=== PATIENT | male | born 1940 | race Caucasian/White ===

== ENCOUNTER → 2016-08-17 | Day surgery (SDC) | payer BC ==
[2016-08-05 11:17] VITALS: Ht 177.8 cm; Wt 80.9 kg
[~2016-08-17] VITALS: Ht 177.8 cm; Wt 80.9 kg
[~2016-08-17] MED LIST: 500ML BSS 0.3ML EPI 1:1000PF IRRIG ONE; AMVISC PLUS 0.8ML SYRINGE INT OCU ONE; ATOR10TA82 PO; ATROPINE SULFATE 0.1 MG/ML 5ML SYR IV PRN; BRIMONIDINE TART 0.2% OP SOLN PER DROP CHARGE ONE; BSS FLUSH ONE; CHOL2000 PO; COEN100C3 PO; ENDOCOAT 0.85ML SYRINGE INT OCU ONE; EpHEDrine SULFATE INJ 50 MG/ML AMP IV PRN; EpINEphrine INJ 1MG/ML AMP 1 MG/ML AMP ONE; GLC500 PO; LACTATED RINGER'S 1000ML 500 ML IV SCH; LIDOCAINE 4% OP SOLN DROP CHARGE ONE; LIDOCAINE 4% OP SOLN DROP CHARGE OPL SCH; LIDOCAINE HCL 1% MPF 2 ML VIAL ONE; MIDAZOLAM HCL 1 MG/ML 2ML VIAL ONE; MOXIFLOXACIN OPH SOLN PER DROP CHARGE ONE; ONDANSETRON INJ 2 MG/ML 2 ML VIAL IV PRN; POVIDONE-IODINE OP SOLN 30 ML BTL ONE; PRLSR20 PO; PROPARACAINE 0.5% OP SOLN PER DROP CHARGE OPL SCH; RIVA1.5T PO; TOBRAMYCIN/DEXAMETHASONE OPH OINT PER APPLN CHARGE ONE; TPRSR/25 PO
[2016-08-17] MEDS: PHENYLEPHRINE HCL 2.5% OP SOLN PER DROP CHARGE OPL SCH ×2 (07:51→07:56)
[2016-08-17] MEDS: TROPICAMIDE 1% OP SOLN PER DROP CHARGE OPL SCH ×2 (07:52→07:57)
[2016-08-17] MEDS: CYCLOPENTOLATE HCL 1% OP SOLN PER DROP CHARGE OPL SCH ×2 (07:53→07:58)
[2016-08-17] MEDS: KETOROLAC 0.5% OP SOLN PER DROP CHARGE OPL SCH ×2 (07:54→07:59)
[2016-08-17] MEDS: MOXIFLOXACIN OPH SOLN PER DROP CHARGE OPL SCH ×2 (07:55→08:05)
--- NOTE | 2016-08-17 08:14 | History & Physical Bridge - [place] ---
H&P Re-Evaluation Bridge Note: I have examined the patient, reviewed the History & Physical and in the interval since the performance of the History & Physical I have noted the following changes of clinical significance: No changes noted
[2016-08-17 09:24] VITALS: TEMP 36.2
--- NOTE | 2016-08-17 09:24 | Discharge Instructions-SurgCtr ---
Discharge Instructions Date of Service Aug 17, 2016. Visit Reason for Visit: Left Cataract Discharge Discharge Diagnosis / Problem: cataract left eye Discharge Goals Goal(s): Improve function Activity Recommendations Activity Limitations: per Instructions/Follow-up section Lifting Limitations: no more than 5 pounds Anesthesia . Post Anesthesia Instructions: If you have had General Anesthesia or IV Sedation: * Do not drive today. * Resume driving when surgeon permits. * Do not make important decisions or sign legal documents today. * Call surgeon for: 1. Temperature elevations greater than 101 degrees F. 2. Uncontrollable pain. 3. Excessive bleeding. 4. Persistent nausea and vomiting. 5. Medication intolerance (nausea, vomiting or rash). * For nausea and vomiting use only clear liquids such as: tea, soda, bouillon until nausea subsides, then gradually increase diet as tolerated. * If you have any concerns or questions, call your surgeon's office. If physician is unavailable and it is an emergency, call 911 or go to the nearest emergency room. . Instructions / Follow-Up Instructions / Follow-Up ACTIVITY RECOMMENDATIONS: * Light activities * You may walk outside, read, watch television. * Mild irritation and blurred vision are common for the first few days, redness around the white part of the eye is common. MEDICATIONS: Resume previous medications unless instructed otherwise by your surgeon. Eye drops (today and tomorrow): Polytrim- one drop in operative eye every 2 hours while awake Prednisolone 1% - one drop in operative eye every 2 hours while awake Ketorolac - one drop in operative eye every 2 hours while awake SPECIAL CARE INSTRUCTIONS: * If any problems or concerns, please call Dr. Tran's office at . * Keep plastic shield taped over eye to sleep at night. * Keep plastic shield taped over eye except to administer eye drops. * Keep plastic shield on until office visit the following day. FOLLOW UP VISIT: Follow-up with Dr. Tran in the [place] office as scheduled. If not already scheduled, please call the office at . Diet Recommendations Home Diet: resume previous diet Procedures Procedures Performed: Left Cataract Phacoemulsification With Intraocular Lens Implant Pending Studies Studies pending at discharge: no Medical Emergencies . Who to Call and When: Medical Emergencies: If at any time you feel your situation is an emergency, please call 911 immediately. . Non-Emergent Contact Non-Emergency issues call your: Tufting Machine Operator . . "Provider Documentation" section prepared by Oliver Tran. .
--- NOTE | 2016-08-17 09:24 | [facility] Post Operative Brief Note ---
Immediate Operative Summary Operative Date Aug 17, 2016. Pre-Operative Diagnosis Cataract Left Eye Post-Operative Diagnosis Same Procedure(s) Performed Left Cataract Phacoemulsification With Intraocular Lens Implant Surgeon Dr. Tran Patrol Judge Surgeon(s) None Estimated Blood Loss 0 Findings cataract left eye Specimens 0 Complication(s) None Disposition Recovery Room / PACU
--- NOTE | 2016-08-17 09:41 | Anesthesia Progress Nt - [facility] ---
Anesthesia Post Op Note Date & Time Aug 17, 2016 at 09:41 Vital Signs Pain Intensity: 0 Vital Signs Past 12 Hours Date Time Temp Pulse Resp B/P (MAP) Pulse Ox O2 Delivery O2 Flow Rate FiO2 08/17/16 09:24 36.2 59 16 127/79 (95) 97 Room Air 08/17/16 07:32 36.4 57 16 171/88 (115) 95 Room Air Notes Mental Status: alert / awake / arousable, participated in evaluation Pt Amnestic to Procedure: Yes Nausea / Vomiting: adequately controlled Pain: adequately controlled Airway Patency, RR, SpO2: stable & adequate BP & HR: stable & adequate Hydration State: stable & adequate Anesthetic Complications: no major complications apparent
[2016-08-17 09:46] VITALS: BP 139/78; PULSE 53; O2SAT 95
--- NOTE | 2016-08-17 10:48 | OPERATIVE REPORT ---
DATE OF OPERATION: 08/17/2016 PREOPERATIVE DIAGNOSIS: Cataract, left eye. POSTOPERATIVE DIAGNOSIS: Cataract, left eye. PROCEDURE: Phacoemulsification cataract extraction with intraocular lens placement, left eye. SURGEON: Dr. Tran. COMPLICATIONS: None. ESTIMATED BLOOD LOSS: None. ANESTHESIA: Topical with sedation. OPERATION AND FINDINGS: After informed consent was obtained in the holding area the patient was wheeled back to the Operating Room where cardiac monitoring leads and oxygen by nasal cannula was administered by Anesthesia. Gentle IV sedation was given, and the patient's left eye was prepped and draped in usual sterile fashion. A wire lid speculum was placed into the left eye and the operating microscope was swung into position. Using 0.12 forceps and a Supersharp blade a paracentesis port was made 3 o'clock hours away from the 3 o'clock position of patient's left eye. 1% non-preserved Lidocaine was then injected into the anterior chamber for anesthesia. A 2.2 mm keratotome blade was then used to make a shelved clear corneal incision at the 3 o'clock position of his left eye. Amvisc was injected into the anterior chamber and a cystotome and Utrata forceps were used to perform a curvilinear capsulorrhexis. BSS on a hydrodissection cannula was used to hydrodissect the lens nucleus away from the capsular bag. The phacoemulsification handpiece was then used in a stop and chop fashion to remove the lens nucleus. The irrigation and aspiration handpiece was then used to remove the residual cortical material. Amvisc was injected into the capsular bag and anterior chamber and a Bausch & Lomb MX60 20.0 Diopter intraocular lens was injected into the capsular bag. Irrigation and aspiration handpiece was used to remove the residual viscoelastic material. The wounds were hydrated and noted to be watertight. The wire lid speculum was removed from the eye. Vigamox, Brimonidine, and TobraDex ointment were placed on the eye and it was shielded. It should be noted that EndoCoat was used during the case to protect the cornea endothelium. DISPOSITION: The patient tolerated the procedure well and was wheeled to the post anesthesia care unit in stable condition. I attest to the content of the Intraoperative Record and any orders documented therein. Any exceptions are noted below. I attest to the content of the Intraoperative Record and any orders documented therein. Any exception s are noted below.
== END | disposition home or self-care (01) ==
LOC: X.SURG 07:08
PROVIDERS: ATTEND Ophthalmology
DX: H26.9 Unspecified cataract (principal); I48.91 Unspecified atrial fibrillation; I10 Essential (primary) hypertension; E11.9 Type 2 diabetes mellitus without complications; Z85.46 Personal history of malignant neoplasm of prostate; Z87.891 Personal history of nicotine dependence; Z79.01 Long term (current) use of anticoagulants; Z79.84 Long term (current) use of oral hypoglycemic drugs; Z79.899 Other long term (current) drug therapy

== ENCOUNTER → 2016-08-31 | Day surgery (SDC) | payer BC ==
[2016-08-28 10:09] VITALS: Ht 177.8 cm; Wt 80.9 kg
[~2016-08-31] VITALS: Ht 177.8 cm; Wt 80.9 kg
[~2016-08-31] MED LIST changes: -ATOR10TA82 PO; +ATOR10TA88 PO; -EpHEDrine SULFATE INJ 50 MG/ML AMP IV PRN; -LIDOCAINE 4% OP SOLN DROP CHARGE OPL SCH; +LIDOCAINE 4% OP SOLN DROP CHARGE OPR SCH; -ONDANSETRON INJ 2 MG/ML 2 ML VIAL IV PRN; -PROPARACAINE 0.5% OP SOLN PER DROP CHARGE OPL SCH; +PROPARACAINE 0.5% OP SOLN PER DROP CHARGE OPR SCH
[2016-08-31] MEDS: PHENYLEPHRINE HCL 2.5% OP SOLN PER DROP CHARGE OPR SCH ×2 (07:11→07:16)
[2016-08-31] MEDS: TROPICAMIDE 1% OP SOLN PER DROP CHARGE OPR SCH ×2 (07:12→07:17)
[2016-08-31] MEDS: CYCLOPENTOLATE HCL 1% OP SOLN PER DROP CHARGE OPR SCH ×2 (07:13→07:18)
[2016-08-31] MEDS: KETOROLAC 0.5% OP SOLN PER DROP CHARGE OPR SCH ×2 (07:14→07:19)
[2016-08-31] MEDS: MOXIFLOXACIN OPH SOLN PER DROP CHARGE OPR SCH ×2 (07:15→07:25)
--- NOTE | 2016-08-31 08:12 | Discharge Instructions-SurgCtr ---
Discharge Instructions Date of Service Aug 31, 2016. Visit Reason for Visit: Cataract Right Eye Discharge Discharge Diagnosis / Problem: cataract right eye Discharge Goals Goal(s): Improve function Medications Stopped Medications Name(s): Metformin stopped 08/29/16 Activity Recommendations Activity Limitations: per Instructions/Follow-up section Lifting Limitations: no more than 5 pounds Anesthesia . Post Anesthesia Instructions: If you have had General Anesthesia or IV Sedation: * Do not drive today. * Resume driving when surgeon permits. * Do not make important decisions or sign legal documents today. * Call surgeon for: 1. Temperature elevations greater than 101 degrees F. 2. Uncontrollable pain. 3. Excessive bleeding. 4. Persistent nausea and vomiting. 5. Medication intolerance (nausea, vomiting or rash). * For nausea and vomiting use only clear liquids such as: tea, soda, bouillon until nausea subsides, then gradually increase diet as tolerated. * If you have any concerns or questions, call your surgeon's office. If physician is unavailable and it is an emergency, call 911 or go to the nearest emergency room. . Instructions / Follow-Up Instructions / Follow-Up ACTIVITY RECOMMENDATIONS: * Light activities * You may walk outside, read, watch television. * Mild irritation and blurred vision are common for the first few days, redness around the white part of the eye is common. MEDICATIONS: Resume previous medications unless instructed otherwise by your surgeon. Eye drops (today and tomorrow): Polytrim - one drop in operative eye every 2 hours while awake Prednisolone 1% - one drop in operative eye every 2 hours while awake Ketorolac - one drop in operative eye every 2 hours while awake SPECIAL CARE INSTRUCTIONS: * If any problems or concerns, please call Dr. Tran's office at . * Keep plastic shield taped over eye to sleep at night. * Keep plastic shield taped over eye except to administer eye drops. * Keep plastic shield on until office visit the following day. FOLLOW UP VISIT: Follow-up with Dr. Tran in the [place] office as scheduled. If not already scheduled, please call the office at . Diet Recommendations Home Diet: resume previous diet Procedures Procedures Performed: Right Cataract Phacoemulsification With Intraocular Lens Implant Pending Studies Studies pending at discharge: no Medical Emergencies . Who to Call and When: Medical Emergencies: If at any time you feel your situation is an emergency, please call 911 immediately. . Non-Emergent Contact Non-Emergency issues call your: Combining Machine Operator . . "Provider Documentation" section prepared by Oliver Tran. .
--- NOTE | 2016-08-31 08:18 | [facility] Operative Report ---
Operative Report Operative Date Aug 31, 2016. Pre-Operative Diagnosis Cataract Right Eye Post-Operative Diagnosis Same Procedure(s) Performed Right Cataract Phacoemulsification With Intraocular Lens Implant Surgeon Dr. Tran Resident Assistant Cna Surgeon(s) None Estimated Blood Loss 0 Findings cataract right eye Specimens None Complication(s) None Disposition Recovery Room / PACU Implants B&L MX60 20.0 Indications decreased vision right eye Description of Procedure After informed consent was obtained in the holding area the patient was wheeled back to the operating room where cardiac monitoring leads and oxygen by nasal cannula was administered by Anesthesia. Gentle IV sedation was given, and the patient's right eye was prepped and draped in usual sterile fashion. A wire lid speculum was placed into the right eye and the operating microscope was swung into position. Using 0.12 forceps and a Supersharp blade a paracentesis port was made 3 o'clock hours away from the 9 o'clock position of the patient's right eye. 1% non-preserved Lidocaine was then injected into the anterior chamber for anesthesia. A 2.2 mm keratotome blade was then used to make a shelved clear corneal incision at the 9 o'clock position of the right eye. Amvisc was injected into the anterior chamber and a cystotome and Utrata forceps were used to perform a curvilinear capsulorrhexis. BSS on a hydrodissection cannula was used to hydrodissect the lens nucleus away from the capsular bag. The phacoemulsification handpiece was then used in a stop and chop fashion to remove the lens nucleus. The irrigation and aspiration handpiece was then used to remove the residual cortical material. Amvisc was injected into the capsular bag and anterior chamber and a Bausch & Lomb MX60 20.0 Diopter intraocular lens was injected into the capsular bag. Irrigation and aspiration handpiece was used to remove the residual viscoelastic material. The wounds were hydrated and noted to be watertight. The wire lid speculum was removed from the eye. Vigamox, Brimonidine, and TobraDex ointment were placed on the eye and it was shielded. It should be noted that EndoCoat was used extensively during the case to protect the cornea endothelium. DISPOSITION: The patient tolerated the procedure well and was wheeled to the post anesthesia care unit in stable condition. I attest to the content of the Intraoperative Record and any orders documented therein. Any exceptions are noted below.
[2016-08-31 08:35] VITALS: BP 147/77; PULSE 52; O2SAT 95
--- NOTE | 2016-08-31 08:42 | Anesthesia Progress Nt - [facility] ---
Anesthesia Post Op Note Date & Time Aug 31, 2016 at 08:42 Vital Signs Pain Intensity: 0 Vital Signs Past 12 Hours Date Time Temp Pulse Resp B/P (MAP) Pulse Ox O2 Delivery O2 Flow Rate FiO2 08/31/16 08:35 52 18 147/77 (100) 95 Room Air 08/31/16 08:14 36.6 50 16 152/78 (102) 97 Room Air 08/31/16 07:01 36.1 50 16 151/82 (105) 95 Room Air Notes Mental Status: alert / awake / arousable, participated in evaluation Pt Amnestic to Procedure: Yes Nausea / Vomiting: adequately controlled Pain: adequately controlled Airway Patency, RR, SpO2: stable & adequate BP & HR: stable & adequate Hydration State: stable & adequate Anesthetic Complications: no major complications apparent
== END | disposition home or self-care (01) ==
LOC: X.SURG 06:45
PROVIDERS: ATTEND Ophthalmology
DX: H26.9 Unspecified cataract (principal); E11.36 Type 2 diabetes mellitus with diabetic cataract; Z98.42 Cataract extraction status, left eye; I48.91 Unspecified atrial fibrillation; Z79.01 Long term (current) use of anticoagulants; Z88.1 Allergy status to other antibiotic agents; Z98.890 Other specified postprocedural states

== ENCOUNTER → 2016-10-05 | Outpatient (CLI) | payer BC ==
[~2016-10-05] MED LIST changes: -500ML BSS 0.3ML EPI 1:1000PF IRRIG ONE; -AMVISC PLUS 0.8ML SYRINGE INT OCU ONE; -ATROPINE SULFATE 0.1 MG/ML 5ML SYR IV PRN; -BRIMONIDINE TART 0.2% OP SOLN PER DROP CHARGE ONE; -BSS FLUSH ONE; -COEN100C3 PO; -ENDOCOAT 0.85ML SYRINGE INT OCU ONE; -EpINEphrine INJ 1MG/ML AMP 1 MG/ML AMP ONE; -LACTATED RINGER'S 1000ML 500 ML IV SCH; -LIDOCAINE 4% OP SOLN DROP CHARGE ONE; -LIDOCAINE 4% OP SOLN DROP CHARGE OPR SCH; -LIDOCAINE HCL 1% MPF 2 ML VIAL ONE; -MIDAZOLAM HCL 1 MG/ML 2ML VIAL ONE; -MOXIFLOXACIN OPH SOLN PER DROP CHARGE ONE; -POVIDONE-IODINE OP SOLN 30 ML BTL ONE; -PROPARACAINE 0.5% OP SOLN PER DROP CHARGE OPR SCH; -TOBRAMYCIN/DEXAMETHASONE OPH OINT PER APPLN CHARGE ONE
[2016-10-05 13:12] LABS: ALT/SGPT 28 U/L (12-78); BLOOD UREA NITROGEN 20 mg/dl (7-18); BUN/CREATININE RATIO 15.6 (10-20); CALCIUM 9.7 mg/dl (8.5-10.1); CARBON DIOXIDE 27 mmol/L (21-32); CHLORIDE 108 mmol/L (98-107); GLUCOSE 158 mg/dl (70-99); POTASSIUM 4.2 mmol/L (3.5-5.1); SODIUM 141 mmol/L (136-145)
[2016-10-05 13:15] LABS: ALB/GLOB RATIO 1.1 (0.9-2); ALKALINE PHOSPHATASE 66 U/L (45-117); AST/SGOT 15 U/L (15-37); CHOLESTEROL/HDL RATIO 3.8
[2016-10-05 13:33] LABS: ESTIMATED AVERAGE GLUCOSE 151 mg/dl; HA1C FLAG Normal (Normal)
== END | disposition home or self-care (01) ==
LOC: C.LABPVFM 08:09
PROVIDERS: ATTEND Family Medicine
DX: I35.1 Nonrheumatic aortic (valve) insufficiency (principal); E78.00 Pure hypercholesterolemia, unspecified; M10.9 Gout, unspecified; K21.9 Gastro-esophageal reflux disease without esophagitis; E11.9 Type 2 diabetes mellitus without complications

== ENCOUNTER → 2017-01-06 | Outpatient (CLI) | payer BC ==
[~2017-01-06] MED LIST changes: +ATOR10TA82 PO; -ATOR10TA88 PO
== END | disposition home or self-care (01) ==
LOC: C.PATHSPEC 01-05 13:05
PROVIDERS: ATTEND Nurse Practitioner Adult Health
DX: R31.9 Hematuria, unspecified (principal)

== ENCOUNTER → 2017-01-06 | Outpatient (CLI) | payer BC ==
[2017-01-06 13:38] LABS: BLOOD UREA NITROGEN 21 mg/dl (7-18); CREATININE 1.33 mg/dl (0.60-1.40)
== END | disposition home or self-care (01) ==
LOC: C.LABPVFM 09:41
PROVIDERS: ATTEND Nurse Practitioner Adult Health
DX: R31.9 Hematuria, unspecified (principal)

== ENCOUNTER → 2017-01-11 | Outpatient (CLI) | payer BC ==
[~2017-01-11] MED LIST changes: +OPTIRAY 320 IV PRN
--- NOTE | 2017-01-11 12:39 | DIAGNOSTIC IMAGING REPORT ---
ABDOMEN AND PELVIS CT WITH AND WITHOUT IV CONTRAST, UROGRAM PROTOCOL CT DOSE: 701.30 mGy.cm HISTORY: R31.9 Hematuria TECHNIQUE: Multiaxial CT images of the abdomen and pelvis were performed both before and after the use of intravenous contrast to evaluate the urinary system. Maximal intensity projection images were performed at the workstation by the radiologist. A dose lowering technique was utilized adhering to the principles of ALARA. COMPARISON STUDY: Abdomen and pelvis CT 11/25/2015. FINDINGS: There is a 1 cm stone within the lower pole the right kidney which is not significantly changed. No left renal calculi. No ureteral calculi. No hydronephrosis. No suspicious filling defects seen within the bilateral renal collecting systems, ureters, or bladder. The lung bases are clear. The liver, spleen, gallbladder, pancreas, kidneys, and adrenal glands are within normal limits. No bowel wall thickening or obstruction. Prior prostatectomy. Normal appendix. No suspicious lytic or blastic osseous lesions. IMPRESSION: 1. A 1 cm stone within the lower pole of the right kidney, unchanged. No left renal or ureteral calculi.. No hydronephrosis. 2. No suspicious filling defects seen within the opacified bilateral renal collecting systems, ureters, or bladder. Electronically signed by: Jamie George M.D. 01/11/2017 12:38 PM Dictated Date/Time: 01/11/2017 12:29 PM
== END | disposition home or self-care (01) ==
LOC: C.CTS 11:59
PROVIDERS: ATTEND Nurse Practitioner Adult Health
DX: R31.9 Hematuria, unspecified (principal); N20.0 Calculus of kidney

== ENCOUNTER → 2017-01-13 | Outpatient (CLI) | payer BC ==
[~2017-01-13] MED LIST changes: -OPTIRAY 320 IV PRN
[2017-01-13 13:19] LABS: BLOOD UREA NITROGEN 20 mg/dl (7-18); BUN/CREATININE RATIO 17.4 (10-20); CREATININE 1.14 mg/dl (0.60-1.40)
== END | disposition home or self-care (01) ==
LOC: C.LABPVFM 08:13
PROVIDERS: ATTEND Nurse Practitioner Adult Health
DX: R31.9 Hematuria, unspecified (principal)

== ENCOUNTER → 2017-02-05 | Outpatient (CLI) | payer BC ==
--- NOTE | 2017-02-05 09:50 | DIAGNOSTIC IMAGING REPORT ---
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 No routine imaging evidence for urinary tract calcification. Stable postoperative changes low pelvis. IMPRESSION: No evidence for nephrocalcinosis. No change from the prior study. The above report was generated using voice recognition software. It may contain grammatical, syntax or spelling errors. Electronically signed by: Kamaljit Shahid M.D. 02/05/2017 9:48 AM Dictated Date/Time: 02/05/2017 9:45 AM
== END | disposition home or self-care (01) ==
LOC: C.RAD 09:03
PROVIDERS: ATTEND Nurse Practitioner Adult Health
DX: N20.0 Calculus of kidney (principal)

== ENCOUNTER → 2017-04-06 | Outpatient (CLI) | payer BC ==
[2017-04-06 13:19] LABS: ALT/SGPT 24 U/L (12-78); AST/SGOT 11 U/L (15-37); BLOOD UREA NITROGEN 16 mg/dl (7-18); CALCIUM 9.6 mg/dl (8.5-10.1); CARBON DIOXIDE 29 mmol/L (21-32); CREATININE 1.12 mg/dl (0.60-1.40); GLUCOSE 151 mg/dl (70-99); POTASSIUM 4.2 mmol/L (3.5-5.1); SODIUM 138 mmol/L (136-145)
[2017-04-06 13:28] LABS: ALKALINE PHOSPHATASE 65 U/L (45-117); CHOLESTEROL 142 mg/dl (0-200); LDL CHOLESTEROL CALCULATED 63 mg/dl; TOTAL PROTEIN 7.9 gm/dl (6.4-8.2)
[2017-04-06 13:38] LABS: HEMOGLOBIN A1C 6.6 % (4.5-5.6)
== END | disposition home or self-care (01) ==
LOC: C.LABPVFM 08:49
PROVIDERS: ATTEND Family Medicine
DX: Z00.00 Encounter for general adult medical examination without abnormal findings (principal); E78.00 Pure hypercholesterolemia, unspecified; I48.0 Paroxysmal atrial fibrillation; K21.9 Gastro-esophageal reflux disease without esophagitis; E11.65 Type 2 diabetes mellitus with hyperglycemia

== ENCOUNTER → 2017-04-06 | Outpatient (CLI) | payer BC ==
--- NOTE | 2017-04-06 16:03 | DIAGNOSTIC IMAGING REPORT ---
L WRIST MIN 3 VIEWS ROUTINE HISTORY: 76 years-old Male HAND PAIN acute ulnar-sided left hand and wrist pain without reported trauma COMPARISON: None available TECHNIQUE: 4 views of the left wrist FINDINGS: Bones are mildly demineralized. Moderate to severe first carpometacarpal osteoarthritis with mild radiocarpal and triscaphe degenerative changes. Subcortical cystic changes are noted involving the proximal triquetrum. Mild degenerative spurring of the distal radioulnar joint. Mild degenerative changes are also seen within the imaged metacarpal phalangeal joints. No acute fracture or subluxation identified. No opaque foreign body or significant soft tissue swelling. IMPRESSION: 1. No acute fracture or dislocation. 2. Degenerative changes as above. 3. Mildly demineralized appearance of the bones. The above report was generated using voice recognition software. It may contain grammatical, syntax or spelling errors. Electronically signed by: Isaac Beckford M.D. 04/06/2017 4:02 PM Dictated Date/Time: 04/06/2017 4:00 PM
== END | disposition home or self-care (01) ==
LOC: C.LABPVFM 15:44
PROVIDERS: ATTEND Family Medicine
DX: M79.642 Pain in left hand (principal); M89.8X4 Other specified disorders of bone, hand

== ENCOUNTER → 2017-09-20 | Outpatient (CLI) | payer BC ==
--- NOTE | 2017-09-20 12:47 | DIAGNOSTIC IMAGING REPORT ---
[facility] CLINICAL HISTORY: N20.1 Calculi, [id number] COMPARISON STUDY: 07/27/2017 FINDINGS: There is no pathologic bowel dilatation. There are multiple surgical clips within the pelvis likely secondary to a prior lymph node dissection. No urinary tract calculi are visualized on conventional radiographic imaging. There is a mild levoscoliosis. Degenerative changes are present within the spine. IMPRESSION: 1. No urinary tract calculi are visualized on conventional radiographic imaging 2. No evidence of pathologic bowel dilatation. Electronically signed by: Nato Galloway M.D. 09/20/2017 12:45 PM Dictated Date/Time: 09/20/2017 12:45 PM
== END | disposition home or self-care (01) ==
LOC: C.RAD 12:06
PROVIDERS: ATTEND Nurse Practitioner Family
DX: N20.1 Calculus of ureter (principal)

== ENCOUNTER → 2017-10-05 | Outpatient (CLI) | payer BC | END | disposition home or self-care (01) | LOC: C.LABSPEC 16:58 | PROVIDERS: ATTEND Nurse Practitioner Family | DX: N39.0 Urinary tract infection, site not specified (principal) ==

== ENCOUNTER → 2017-10-11 | Outpatient (CLI) | payer BC ==
[2017-10-11 13:40] LABS: ALKALINE PHOSPHATASE 59 U/L (45-117); ALT/SGPT 22 U/L (12-78); AST/SGOT 14 U/L (15-37); BLOOD UREA NITROGEN 17 mg/dl (7-18); CALCIUM 9.6 mg/dl (8.5-10.1); CARBON DIOXIDE 28 mmol/L (21-32); CREATININE 1.11 mg/dl (0.60-1.40); GLUCOSE 145 mg/dl (70-99); POTASSIUM 4.3 mmol/L (3.5-5.1); SODIUM 140 mmol/L (136-145); TOTAL PROTEIN 7.7 gm/dl (6.4-8.2)
== END | disposition home or self-care (01) ==
LOC: C.LABPVFM 08:24
PROVIDERS: ATTEND Family Medicine
DX: E78.00 Pure hypercholesterolemia, unspecified (principal); E11.65 Type 2 diabetes mellitus with hyperglycemia

== ENCOUNTER 2018-05-31 15:16 | Observation (INO) ==
[2018-05-31 16:14] LABS: Basophils # (auto) 0.02 K/uL (0-0.2); Basophils % (auto) 0.3 %; Eosinophils # (auto) 0.12 K/uL (0-0.5); Eosinophils % (auto) 1.8 %; Hematocrit (blood only) 43.5 % (42-52); Immature Granulocytes # (auto) 0.01 K/uL (0.00-0.02); Immature Granulocytes % (auto) 0.1 %; Lymphocytes # (auto) 1.61 K/uL (1.2-3.4); Lymphocytes % (auto) 24.1 %; Mean Corpuscular Hgb Conc 34.5 g/dL (32-36); Mean Corpuscular Volume 90.8 fL (80-100); Monocytes # (auto) 0.44 K/uL (0.11-0.59); Monocytes % (auto) 6.6 %; Neutrophils # (auto) 4.47 K/uL (1.4-6.5); Neutrophils % (auto) 67.1 %; Platelet Count 206 K/uL (130-400); RDW Coefficient of Variation 12.7 % (11.5-14.5); RDW Standard Deviation 41.8 fL (36.4-46.3); Red Blood Count 4.79 M/uL (4.7-6.1); White Blood Count 6.67 K/uL (4.8-10.8)
--- NOTE | 2018-05-31 16:23 | Emergency Department Note ---
Entered by Denisa Dean acting as a scribe for Ziggy Otoole DO History of Present Illness General Chief complaint: Shortness of Breath/Dyspnea Stated complaint: CHEST TIGHTNESS AND SHORTNESS OF BREATH Time Seen by Provider: 05/31/18 15:47 Source: patient Limitations: no limitations History of Present Illness Provider complaint: shortness of breath Onset (ago): day(s) 1 Location: chest Exacerbated By: + movement Associated symptoms: + denies other symptoms (diarrhea ) and + other (+chest tightness); no nausea/vomiting The patient is a 77 year old C7 who presents to the Emergency Room with complaints of shortness of breath that began 1 day prior to arrival. The patient states that walking exacerbates his shortness of breath and states that it also causes chest tightness. The patient denies any nausea, vomiting, or diarrhea. The patient states that the night prior to arrival he thinks he had atrial fibrillation. The patient states that he is scheduled for a stress test on Wednesday. The patient states that he has a history of indigestion and states that he takes Zantac. Home Medications Home Medications Medication Instructions Recorded Confirmed Type atorvastatin 10 mg PO DAILY 05/31/18 05/31/18 History cholecalciferol (vitamin D3) 2,000 units PO DAILY 05/31/18 05/31/18 History metformin 500 mg PO BID 05/31/18 05/31/18 History metoprolol succinate 25 mg PO BID 05/31/18 05/31/18 History omeprazole 20 mg PO QAM 05/31/18 05/31/18 History ranitidine HCl 150 mg PO BID 05/31/18 05/31/18 History rivaroxaban [Xarelto] 15 mg PO DAILY 05/31/18 05/31/18 History Allergies Allergy/AdvReac Type Severity Reaction Status Date / Time meprobamate Allergy Intermediate ITCHING Verified 08/31/16 06:58 propoxyphene Allergy Intermediate ITCHING Verified 08/31/16 06:58 salicylates Allergy Intermediate ITCHING; Verified 08/31/16 06:58 PT TAKES ASA AT HOME acetaminophen Allergy Mild Unknown Verified 08/31/16 06:58 codeine Allergy Unknown unknown Verified 08/31/16 06:58 erythromycin base Allergy Unknown Verified 08/31/16 06:58 Xanthine Derivatives Allergy Unknown Unknown Uncoded 04/04/16 12:15 reaction Past Med/Surg History Medical History Atrial fibrillation No significant family history No significant past surgical history Pyelonephritis Social History Feels Safe at Home: Yes Smoking Status: Former smoker Review of Systems See HPI for pertinent positives & negatives. and A total of 10 systems reviewed and were otherwise negative See HPI for pertinent positives & negatives. A total of 10 systems reviewed and were otherwise negative. Physical Exam Vital Signs Vital Signs - 24 hr 05/31/18 15:19 05/31/18 15:50 05/31/18 16:16 Temperature 36.6 C Temperature Source Oral Sepsis Recent Fever Within 48 Hours No Sepsis New/Unexplained Change in Mental Status No Sepsis Action Taken by Nursing No Action Required Pulse Rate 65 62 Pulse Rate [Apical] 66 Pulse Rhythm [Apical] Regular Pulse Strength [Apical] Normal Respiratory Rate 18 12 Respiratory Effort / Characteristics Non-Labored Non-Labored Spontaneous Respiratory Depth Normal Normal Respiratory Pattern Regular Blood Pressure 119/70 165/88 H Blood Pressure [Right Arm] 165/88 H Blood Pressure Mean 86 113 Blood Pressure Mean [Right Arm] 113 Blood Pressure Position [Right Arm] Sitting Pulse Oximetry 97 98 Oxygen Delivery Method Room Air Room Air Room Air Oxygen Flow Rate 98 05/31/18 16:21 05/31/18 16:30 05/31/18 17:00 Temperature Temperature Source Sepsis Recent Fever Within 48 Hours Sepsis New/Unexplained Change in Mental Status Sepsis Action Taken by Nursing Pulse Rate 67 64 51 L Pulse Rate [Apical] Pulse Rhythm [Apical] Pulse Strength [Apical] Respiratory Rate 27 H 16 17 Respiratory Effort / Characteristics Respiratory Depth Respiratory Pattern Blood Pressure Blood Pressure [Right Arm] Blood Pressure Mean Blood Pressure Mean [Right Arm] Blood Pressure Position [Right Arm] Pulse Oximetry Oxygen Delivery Method Oxygen Flow Rate 05/31/18 17:11 Temperature Temperature Source Sepsis Recent Fever Within 48 Hours Sepsis New/Unexplained Change in Mental Status Sepsis Action Taken by Nursing Pulse Rate Pulse Rate [Apical] 62 Pulse Rhythm [Apical] Pulse Strength [Apical] Respiratory Rate 19 Respiratory Effort / Characteristics Respiratory Depth Respiratory Pattern Blood Pressure Blood Pressure [Right Arm] 127/67 Blood Pressure Mean Blood Pressure Mean [Right Arm] 87 Blood Pressure Position [Right Arm] Pulse Oximetry 98 Oxygen Delivery Method Room Air Oxygen Flow Rate CONSTITUTIONAL/VITAL SIGNS: Reviewed / noted above. GENERAL: Non-toxic in appearance. INTEGUMENTARY: Warm, dry, and [place]. HEAD: Normocephalic. EYES: without scleral icterus or trauma. ENT/OROPHARYNX: clear and moist. LYMPHADENOPATHY/NECK: Is supple without lymphadenopathy or meningismus. RESPIRATORY: Lungs clear and equal. CARDIOVASCULAR: Regular rate and rhythm. GI/ABDOMEN: Soft and nontender. No organomegaly or pulsatile mass. No rebound or guarding. Normal bowel sounds. EXTREMITIES: Warm and well perfused. BACK: No CVA tenderness. NEUROLOGICAL: Intact without focal deficits. PSYCHIATRIC: normal affect. MUSCULOSKELETAL: Normally developed with good muscle tone. Course 154: Past medical records reviewed. The patient was evaluated in room C7, and a complete history and physical examination were performed. 1745:I discussed the patient's case with [facility] Hospitalist who will evaluate the patient for further hospitalization. Consultations Consultation #1: [facility] Hospitalist Time: 17:46 Medical Decision Making Differential Diagnosis Etiologies such as cardiac ischemia, aortic dissection, pulmonary embolism, pneumonia, pneumothorax, musculoskeletal, infections, pericarditis, myocarditis, esophageal rupture, gastrointestinal, as well as others were entertained. Medical Records Attestation: I reviewed the patient's medical records. Home Medications Current Medication List: was personally reviewed by me Laboratory Data Attestation: I reviewed the patient's lab results. Result diagrams: 05/31/18 15:46 05/31/18 15:46 Lab Results 05/31/18 05/31/18 05/31/18 Range/Units 15:46 15:46 15:46 WBC 6.67 (4.8-10.8) K/uL RBC 4.79 (4.7-6.1) M/uL Hgb 15.0 (14.0-18.0) g/dL Hct 43.5 (42-52) % MCV 90.8 (80-100) fL MCH 31.3 (25-34) pg MCHC 34.5 (32-36) g/dL RDW Std Deviation 41.8 (36.4-46.3) fL RDW Coeff of Dinora 12.7 (11.5-14.5) % Plt Count 206 (130-400) K/uL MPV 10.0 (7.4-10.4) fL Immature Gran % (Auto) 0.1 % Neut % (Auto) 67.1 % Lymph % (Auto) 24.1 % [place] % (Auto) 6.6 % Eos % (Auto) 1.8 % Baso % (Auto) 0.3 % Immature Gran # (Auto) 0.01 (0.00-0.02) K/uL Neut # (Auto) 4.47 (1.4-6.5) K/uL Lymph # (Auto) 1.61 (1.2-3.4) K/uL [place] # (Auto) 0.44 (0.11-0.59) K/uL Eos # (Auto) 0.12 (0-0.5) K/uL Baso # (Auto) 0.02 (0-0.2) K/uL PT 12.4 H (9.0-12.0) Seconds INR 1.2 H (0.9-1.1) APTT 31.0 (21.0-31.0) Seconds PTT Ratio 1.1 Sodium 142 (136-145) mmol/L Potassium 4.1 (3.5-5.1) mmol/L Chloride 108 H (98-107) mmol/L Carbon Dioxide 27 (21-32) mmol/L Anion Gap 7.0 (3-11) BUN 20 H (7-18) mg/dl Creatinine 1.16 (0.6-1.4) mg/dl Est Cr Clr Drug Dosing 55.9 ml/min Est GFR ( Amer) 70.5 Est GFR (Non-Af Amer) 60.8 BUN/Creatinine Ratio 17.3 (10-20) Glucose 141 H (70-99) mg/dl Calcium 9.6 (8.5-10.1) mg/dl Total Bilirubin 0.8 (0.2-1) mg/dl AST 12 L (15-37) U/L ALT 24 (12-78) U/L Alkaline Phosphatase 66 (45-117) U/L Troponin I 0.050 H* (0-0.045) ng/ml Total Protein 7.6 (6.4-8.2) gm/dl Albumin 3.9 (3.4-5.0) gm/dl Globulin 3.7 (2.5-4.0) gm/dl Albumin/Globulin Ratio 1.1 (0.9-2) Lipase 298 (73-393) U/L Imaging Data Radiologist's Impression: Radiology results as stated below per my review and the radiologist's interpretation: XR chest 1V portable HISTORY: Chest tightness. COMPARISON: Chest 06/03/2015. FINDINGS: The lungs are clear. Cardiac silhouette is normal in size. No pleural effusions. No pneumothorax. IMPRESSION: No acute process. Electronically signed by: Jamie George M.D. 05/31/2018 4:37 PM ECG Data Attestation: I personally reviewed and interpreted this ECG as follows: Indication: SOB/dyspnea Rate (beats per minute): 61 Rhythm: sinus rhythm Findings: + 1st degree AV block; no ST elevation and no ectopy Blood Pressure Blood Pressure Findings: Normal blood pressure MDM Narrative This is a 77-year-old male who presents to the ED with a chief complaint of tightness in his chest for the past few weeks. His symptoms are notable with exertion. He also started having some dyspnea with exertion. This started yesterday. The patient states that he was burping a lot last night around midnight. He was seen by his cardiology service late last week. They have him set up for stress test on Wednesday. Last night he also felt like his pulse was irregular. His vital signs today are normal. His physical exam was normal. He is currently not having any symptoms. His CBC was normal. Chest x-ray was negative for acute disease. EKG shows a sinus rhythm at a rate of 60 with a first-degree AV block. Complete metabolic panel was unremarkable. Troponin was slightly elevated 0.050. The patient is chronically on Xarelto for A. fib. He was told the results of the test. I spoke with the hospitalist, who will see the patient for further inpatient evaluation and care. Impression & Plan Angina pectoris, unstable Discharge Plan Visit Data Chief Complaint: Shortness of Breath/Dyspnea Stated Complaint: CHEST TIGHTNESS AND SHORTNESS OF BREATH ED Provider: Ziggy Otoole Discharge Problem: Angina pectoris, unstable Patient Disposition: Being Evaluated by Hospitalist Forms Stand Alone Forms: [facility] [employer] Prescriptions Prescriptions: No Action Xarelto 15 mg tablet 15 mg PO DAILY RF: 0 omeprazole 20 mg capsule,delayed release(DR/EC) 20 mg PO QAM RF: 0 ranitidine HCl 150 mg tablet 150 mg PO BID RF: 0 metoprolol succinate 25 mg tablet extended release 24 hr 25 mg PO BID RF: 0 cholecalciferol (vitamin D3) 2,000 unit Tablet 2,000 units PO DAILY RF: 0 metformin 500 mg tablet 500 mg PO BID RF: 0 atorvastatin 10 mg tablet 10 mg PO DAILY RF: 0 Referrals Referrals: Ghanshyam Shaw MD [Primary Care Provider] - The scribe's documentation has been prepared under my direction and personally reviewed by me in its entirety. I confirm that the note above accurately reflects all work, treatment, procedures, and medical decision making performed by me.
[2018-05-31 16:27] LABS: INR 1.2 (0.9-1.1); Partial Thromboplastin Ratio 1.1; Prothrombin Time 12.4 Seconds (9.0-12.0)
--- NOTE | 2018-05-31 16:38 | XRay Report ---
XR chest 1V portable HISTORY: Chest tightness. COMPARISON: Chest 06/03/2015. FINDINGS: The lungs are clear. Cardiac silhouette is normal in size. No pleural effusions. No pneumot horax. IMPRESSION: No acute process. Electronically signed by: Jamie George M.D. 05/31/2018 4:37 PM
[2018-05-31 16:54] LABS: Albumin Globulin Ratio 1.1 (0.9-2); Albumin Level 3.9 gm/dl (3.4-5.0); BUN Creatinine Ratio 17.3 (10-20); Bilirubin,Total 0.8 mg/dl (0.2-1); Calcium 9.6 mg/dl (8.5-10.1); Creatinine Clr Calc Pharmacy 55.9 ml/min; Est GFR (African American) 70.5; Est GFR (Non-African American) 60.8; Globulin 3.7 gm/dl (2.5-4.0); Total Protein 7.6 gm/dl (6.4-8.2)
[2018-05-31 17:00] LABS: Potassium 4.1 mmol/L (3.5-5.1)
[2018-05-31 17:38] LABS: Troponin I 0.05 ng/ml (0-0.045)
--- NOTE | 2018-05-31 18:38 | History & Physical Report ---
Date of Service May 31, 2018 Assessment & Plan (1) Chest pain: Some typical and some atypical symptoms. Planned to get outpatient stress on Wednesday, but cardiology office recommended coming in due to his episode of sustained pain last night. Initial troponin was 0.05 in the ED. EKG was stable and non-ischemic. - Trend troponins and EKGs - Discussed with Dr. Whitlock - Plan for dobutamine stress echo in the morning if negative troponins - Telemetry (2) Atrial fibrillation: Paroxysmal. - Continue Xarelto for anticoagulation - Continue Toprol XL (3) Diabetes mellitus: Last A1c was 7.0% in 04/2018. - Hold metformin in case of need for cath. - Sliding scale insulin (4) Hyperlipidemia: - Continue statin (5) DVT prophylaxis: Xarelto for his afib History of Present Illness Primary Care Provider: Ghanshyam Shaw MD 77yo M w/ history of DM, HLD who presents with unstable chest pain. He reports that for several weeks, he has had chest pain that he describes as a burning epigastric sensation which is crushing. He reports the pain is usually worse with eating and improves with his home GERD medications. However the last couple weeks he has also noted shortness of breath with the symptoms. He notes the symptoms have been worse in the last few days when walking to or from his tool shed. He planned for an outpatient stress test on Wednesday; however, overnight he had a significant episode of his chest pressure that lasted from 11 PM to midnight. There is again associated with shortness of breath and resolved when he took his home omeprazole. At present he is chest pain-free. He denies fever, chills, sweats, nausea, vomiting, shortness of breath, lightheadedness, dizziness, or other symptoms. Allergies Allergy/AdvReac Type Severity Reaction Status Date / Time meprobamate Allergy Intermediate ITCHING Verified 08/31/16 06:58 propoxyphene Allergy Intermediate ITCHING Verified 08/31/16 06:58 salicylates Allergy Intermediate ITCHING; Verified 08/31/16 06:58 PT TAKES ASA AT HOME acetaminophen Allergy Mild Unknown Verified 08/31/16 06:58 codeine Allergy Unknown unknown Verified 08/31/16 06:58 erythromycin base Allergy Unknown Verified 08/31/16 06:58 Xanthine Derivatives Allergy Unknown Unknown Uncoded 06/03/15 12:15 reaction Home Medications Home Medications Medication Instructions Recorded Confirmed Type atorvastatin 10 mg PO DAILY 05/31/18 05/31/18 History cholecalciferol (vitamin D3) 2,000 units PO DAILY 05/31/18 05/31/18 History metformin 500 mg PO BID 05/31/18 05/31/18 History metoprolol succinate 25 mg PO BID 05/31/18 05/31/18 History omeprazole 20 mg PO QAM 05/31/18 05/31/18 History ranitidine HCl 150 mg PO BID 05/31/18 05/31/18 History rivaroxaban [Xarelto] 15 mg PO DAILY 05/31/18 05/31/18 History Past Med/Surg History Medical History No significant family history (Inactive) No significant past surgical history (Inactive) Atrial fibrillation Diabetes mellitus Hyperlipidemia Prostate cancer Pyelonephritis Surgical History S/P prostatectomy Family History Father Stroke Mother Stroke Social History Feels Safe at Home: Yes Smoking Status: Former smoker Review of Systems Constitutional: no fever, no chills and no sweats Eyes: no diplopia Ear, Nose, Mouth, Throat: no ear trauma, no nasal discharge and no dental pain Respiratory: no cough, no chest congestion and no dyspnea Cardiovascular: + chest pain and + dyspnea on exertion; no radiating jaw, neck or arm pain, no palpitations and no syncope Gastrointestinal: no abdominal pain, no belching, no constipation, no diarrhea/loose stools, no blood in stools and no melena Musculoskeletal: no back pain, no joint pain and no muscle weakness Integumentary: no rash, no skin ulcer and no erythema Neurologic: no generalized weakness, no loss of sensation, no numbness and no paresthesia Psychiatric: no depression and no anxiety Endocrine: no fatigue, no polydipsia and no polyphagia Physical Exam Vital Signs (Past 24 Hours): Last Vital Signs Temp 36.6 C 05/31/18 15:19 Pulse 62 05/31/18 17:11 Resp 19 05/31/18 17:11 BP 127/67 05/31/18 17:11 Pulse Ox 98 05/31/18 17:11 Constitutional: WD/WN, vitals as above Eyes: EOM intact bilaterally; no conjunctival abnormality ENMT: external ear and nose normal, oropharynx normal Neck: trachea midline, no thyromegaly normal visual inspection Respiratory: normal respiratory effort, lungs clear to auscultation no respiratory distress Cardiovascular: RRR, no murmur, no edema Gastrointestinal (Abdomen): Inspection/Auscultation: abdomen normal to inspection; abdomen not distended Musculoskeletal: no cyanosis or clubbing, extremities motor strength 5/5 Skin: no rashes, warm and dry Neurologic: moves all extremities and awake Psychiatric: Orientation: alert, oriented to person and cooperative
[2018-05-31] MEDS ORDERED: ALUMINUM/MAGNESIUM SUSP 30 ML UDC PO PRN (19:26)
[2018-05-31] MEDS ORDERED: CARBOHYDRATES FOR HYPOGLYCEMIA PO PRN (19:26)
[2018-05-31] MEDS ORDERED: GLUCOSE 40% GEL 15 GM TUBE PO PRN (19:26)
[2018-05-31] MEDS ORDERED: DEXTROSE 50% 50 ML SYRINGE IV PRN (19:26)
[2018-05-31] MEDS ORDERED: GLUCOSE 10 TABS/TUBE PO PRN (19:26)
[2018-05-31] MEDS ORDERED: GLUCAGON FOR INJ 1 MG VIAL SQ PRN (19:26)
[2018-05-31] MEDS: INSULIN ASPART 100 UNITS/ML 3 ML PEN SC SCH (20:50)
[2018-05-31] MEDS: METOPROLOL SUCC 25MG EXT REL TAB PO SCH (20:52)
[2018-06-01 06:02] LABS: Hematocrit (blood only) 41.3 % (42-52); Mean Corpuscular Hgb Conc 33.9 g/dL (32-36); Mean Corpuscular Volume 91.4 fL (80-100); Mean Platelet Volume 10.2 fL (7.4-10.4); Platelet Count 188 K/uL (130-400); RDW Coefficient of Variation 12.9 % (11.5-14.5); RDW Standard Deviation 42.9 fL (36.4-46.3); Red Blood Count 4.52 M/uL (4.7-6.1); White Blood Count 5.73 K/uL (4.8-10.8)
[2018-06-01 06:19] LABS: BUN Creatinine Ratio 18.7 (10-20); Calcium 9.3 mg/dl (8.5-10.1); Creatinine Clr Calc Pharmacy 60.1 ml/min; Est GFR (African American) 76.9; Est GFR (Non-African American) 66.3; Magnesium 2.1 mg/dl (1.8-2.4); Potassium 4.3 mmol/L (3.5-5.1)
[2018-06-01 06:24] LABS: Troponin I 0.041 ng/ml (0-0.045)
[2018-06-01] MEDS: METOPROLOL SUCC 25MG EXT REL TAB PO SCH (08:10)
[2018-06-01] MEDS: INSULIN ASPART 100 UNITS/ML 3 ML PEN SC SCH (08:48)
[2018-06-01] MEDS ORDERED: PANTOprazole 40 MG TAB PO SCH (09:00)
[2018-06-01] MEDS ORDERED: RIVAROXABAN 15 MG TAB PO SCH (09:00)
[2018-06-01] MEDS ORDERED: ATORVASTATIN 10 MG TAB PO SCH (09:00)
[2018-06-01] MEDS ORDERED: ATROPINE SULFATE 0.1 MG/ML 10ML SYR IV ONE (11:03)
[2018-06-01] MEDS ORDERED: DOBUTamine HCL 12.5 MG/ML 20 ML VIAL IV ONE (11:03)
[2018-06-01] MEDS ORDERED: METOPROLOL TARTRATE 1 MG/ML VIAL IV ONE (11:04)
--- NOTE | 2018-06-01 15:27 | Discharge Summary ---
Date of Service June 01, 2018 Admission HPI Per Admitting Provider 77yo M w/ history of DM, HLD who presents with unstable chest pain. He reports that for several weeks, he has had chest pain that he describes as a burning epigastric sensation which is crushing. He reports the pain is usually worse with eating and improves with his home GERD medications. However the last couple weeks he has also noted shortness of breath with the symptoms. He notes the symptoms have been worse in the last few days when walking to or from his tool shed. He planned for an outpatient stress test on Wednesday; however, overnight he had a significant episode of his chest pressure that lasted from 11 PM to midnight. There is again associated with shortness of breath and resolved when he took his home omeprazole. At present he is chest pain-free. He denies fever, chills, sweats, nausea, vomiting, shortness of breath, lightheadedness, dizziness, or other symptoms. Principal Diagnosis non cardiac chest pain Discharge Exam Constitutional well developed and average body habitus Eyes no conjunctival abnormality and no scleral abnormality Neck normal visual inspection and trachea midline Musculoskeletal no cyanosis or clubbing, extremities motor strength 5/5 Discharge Data Allergies Allergy/AdvReac Type Severity Reaction Status Date / Time meprobamate Allergy Intermediate ITCHING Verified 08/31/16 06:58 propoxyphene Allergy Intermediate ITCHING Verified 08/31/16 06:58 salicylates Allergy Intermediate ITCHING; Verified 08/31/16 06:58 PT TAKES ASA AT HOME acetaminophen Allergy Mild Unknown Verified 08/31/16 06:58 codeine Allergy Unknown unknown Verified 08/31/16 06:58 erythromycin base Allergy Unknown Verified 08/31/16 06:58 Xanthine Derivatives Allergy Unknown Unknown Uncoded 06/03/15 12:15 reaction Hospital Course (1) Chest pain: Some typical and some atypical symptoms. Planned to get outpatient stress on Wednesday, but cardiology office recommended coming in due to his episode of sustained pain last night. Initial troponin was 0.05 in the ED. EKG was stable and non-ischemic. - neg troponins and EKG for changes - Dr. Whitlock - Negative dobutamine stress echo Had a prolonged discussion with the patient and his family regarding his atypical symptoms is negative stress test. His symptoms were postprandial we talked a little bit about reflux disease he is on a proton pump inhibitor and H2 lorenza and I recommend he follow-up with Dr. Holloway for possible EGD. Also denotes the discomfort and bloating occur after eating and because he does have risk factors for coronary disease although having a negative stress test he could also have intestinal angina and may benefit from a CT angiogram. I offered the patient stay in our facility to have a GI consult and possible CT angiogram however the patient wanted to go home and talk with his physician at [facility] office. I used my nurse navigator to arrange for an office appointment at the most timely fashion and encouraged the patient to continue his dual antiacid therapy until he sees his doctor (2) Atrial fibrillation: Paroxysmal. - Continue Xarelto for anticoagulation and Toprol XL for rate control (3) Diabetes mellitus: Last A1c was 7.0% in 04/2018. Resume metformin the patient denies any intravenous contrast dye (4) Hyperlipidemia: - Continue statin (5) DVT prophylaxis: Xarelto for his afib Total Time Total Time Spent Total Time Spent (In Minutes): greater than 30 minutes were required to prepare discharge Discharge Plan Discharge Items Patient Disposition: Home - Self-Care Reason For Visit: CHEST PAIN Discharge Diagnosis: chest pain with normal stress test Discharge Goals: Decrease discomfort Activity: Resume your previous activity Non-emergency contact: Primary Care Provider and Quantitative Developer Call non-emergency contact if: you have any medication questions Follow-up/Referrals: Ghanshyam Shaw MD [Primary Care Provider] - 06/08/18 12:00 pm (Follow up appointment scheduled with Primary Care Physician, Dr. Ghanshyam Shaw, on WednesdayJune 08 at 12:00pm. Please call the office if you have any questions or need to reschedule ([phone])) Diet: Carb Consistent or DM2 and Heart Healthy Addtl Provider Instructions: please follow up with your primary care provider if you have continued symptoms Prescriptions: Continued Xarelto 15 mg tablet 15 mg PO DAILY RF: 0 omeprazole 20 mg capsule,delayed release(DR/EC) 20 mg PO QAM RF: 0 ranitidine HCl 150 mg tablet 150 mg PO BID RF: 0 metoprolol succinate 25 mg tablet extended release 24 hr 25 mg PO BID RF: 0 cholecalciferol (vitamin D3) 2,000 unit Tablet 2,000 units PO DAILY RF: 0 metformin 500 mg tablet 500 mg PO BID RF: 0 atorvastatin 10 mg tablet 10 mg PO DAILY RF: 0 Stand-Alone Forms: [facility] Discharge Orders: Discharge Order (Routine); Ordered 06/01/18 Ordered By: Donavan Mayo Admission Data Admit Date/Time: 05/31/18 18:33 Attending Provider: Donavan Maoy Admit Provider: Lj Mathis Primary Care Provider: Ghanshyam Shaw Other Providers: Lj Mathis Service: Telemetry Medical Other Interventions: Discharge Summary Assessment (RN) Last Done: 06/01/18 13:34 DC Date/Time DO NOT enter until pt leaves facility: 06/01/18 13:57
== END 2018-06-01 13:57 | disposition home or self-care (01) ==
LOC: ED 15:16 → 2N 15:16 → SUATTDRO 18:33 → 2N 06-01 11:58

== ENCOUNTER 2020-10-13 20:25 | Observation (INO) ==
[2020-10-13 21:14] LABS: Basophils # (auto) 0.01 K/uL (0-0.2); Basophils % (auto) 0.2 %; Eosinophils # (auto) 0.02 K/uL (0-0.5); Eosinophils % (auto) 0.3 %; Hematocrit (blood only) 39.6 % (42-52); Hemoglobin 12.9 g/dL (14.0-18.0); Immature Granulocytes # (auto) 0.05 K/uL (0.00-0.02); Immature Granulocytes % (auto) 0.8 %; Lymphocytes # (auto) 1.02 K/uL (1.2-3.4); Lymphocytes % (auto) 15.9 %; Mean Corpuscular Hgb Conc 32.6 g/dL (32-36); Mean Corpuscular Volume 79.8 fL (80-100); Mean Platelet Volume 9.8 fL (7.4-10.4); Monocytes # (auto) 0.41 K/uL (0.11-0.59); Monocytes % (auto) 6.4 %; Neutrophils % (auto) 76.4 %; Platelet Count 303 K/uL (130-400); RDW Coefficient of Variation 17.3 % (11.5-14.5); RDW Standard Deviation 50.2 fL (36.4-46.3); Red Blood Count 4.96 M/uL (4.7-6.1); White Blood Count 6.41 K/uL (4.8-10.8)
[2020-10-13 21:25] LABS: INR 1.2 (0.9-1.1); Partial Thromboplastin Ratio 1.1; Prothrombin Time 12.1 Seconds (9.0-12.0)
[2020-10-13 21:26] LABS: Alanine Aminotransferase 33 U/L (12-78); Albumin Level 3.2 gm/dl (3.4-5.0); Aspartate Aminotransferase 21 U/L (15-37); BUN Creatinine Ratio 20.5 (10-20); Blood Urea Nitrogen 30 mg/dl (7-18); Calcium 9.1 mg/dl (8.5-10.1); Carbon Dioxide 23 mmol/L (21-32); Chloride 102 mmol/L (98-107); Creatinine Clr Calc Pharmacy 42.1 ml/min; Est GFR (African American) 51.8 ml/min; Est GFR (Non-African American) 44.7 ml/min; Glucose 196 mg/dl (70-99); Magnesium 1.7 mg/dl (1.8-2.4); Potassium 4.4 mmol/L (3.5-5.1); Sodium 135 mmol/L (136-145)
[2020-10-13 21:30] LABS: Albumin Globulin Ratio 0.7 (0.9-2); Alkaline Phosphatase 111 U/L (45-117); Bilirubin,Total 1.3 mg/dl (0.2-1); Globulin 4.4 gm/dl (2.5-4.0); Total Protein 7.6 gm/dl (6.4-8.2); Troponin I < 0.015 ng/ml (0-0.045)
[2020-10-13 21:35] LABS: Appearance Urine Clear (Clear); Bacteria Urine Automated Negative (Negative); Blood Urine Negative (Negative); Color Urine Dark Yellow; Glucose Urine UA Negative (Negative); Ketones Urine Trace (Negative); Leukocyte Esterase Urine Negative (Negative); Nitrite Urine Negative (Negative); Protein Urine 1+ (Negative); RBC Urine Automated 0-4 /hpf (0-4); Specific Gravity Urine 1.024 (1.000-1.030); Urobilinogen Urine Positive (Negative)
[2020-10-13 22:00] LABS: Bilirubin Urine 1+ (Negative)
[2020-10-13 22:11] LABS: Procalcitonin 0.05 ng/ml (0-0.5)
[2020-10-13 22:17] LABS: Lyme Ab IgM w/WB Rflx Negative (Negative)
[2020-10-13] MEDS ORDERED: DOXYCYCLINE HYCLATE 100 MG CAP PO STA (22:21)
[2020-10-13] MEDS ORDERED: cefTRIAXone SODIUM 1,000 MG/50 ML BAG IV STA (22:21)
[2020-10-13] MEDS ORDERED: SODIUM CHLORIDE 0.9% 1000ML 1,000 ML IV ONE (22:25)
[2020-10-13 22:28] LABS: Lyme Ab IgG w/WB Rflx Negative (Negative)
--- NOTE | 2020-10-13 23:10 | Emergency Department Note ---
History of Present Illness General Chief complaint: Illness Stated complaint: WEAKNESS-BLOOD SUGAR [id number] Time Seen by Provider: 10/13/20 20:50 History of Present Illness Provider complaint: Weakness cough Onset (ago): week(s) 1 Maximum Pain Intensity: 3 Associated symptoms: + cough, + fever/chills and + weakness; no chest pain, no headaches, no nausea/vomiting or no shortness of breath 80-year-old male presents emergency department with his for weakness. reports that the patient is been increasingly weak over the last week and not eating. She also reports that the patient felt subjective feverish yesterday and had chills. She reports he has also been coughing a lot producing green sputum. Patient is vaccinated against COVID-19. No hematuria dysuria melena or hematochezia. No hemoptysis. Patient is on blood thinners. Patient denies any falls or hitting his head. Home Medications Medication Instructions Recorded Confirmed Type blood sugar diagnostic (OneTouch #10 ea 09/27/18 10/07/20 History Ultra Blue Test Strip) cholecalciferol (vitamin D3) 50 2,000 units PO QAM 10/17/18 10/13/20 History mcg (2,000 unit) capsule esomeprazole magnesium 20 mg 20 mg PO QAM #90 cap 05/13/20 10/13/20 Rx capsule,delayed release acetaminophen 500 mg tablet 500 mg PO Q8H PRN tab 06/12/20 10/13/20 History (Tylenol Extra Strength) aspirin 81 mg chewable tablet 81 mg PO DAILY 06/12/20 10/13/20 History metformin 500 mg tablet 500 mg PO BID #180 tab 06/17/20 10/13/20 Rx nitroglycerin 0.4 mg sublingual 0.4 mg SUBLINGUAL UD PRN 06/27/20 10/13/20 History tablet apixaban 5 mg tablet (Eliquis) 5 mg PO BID #180 tab 07/02/20 10/13/20 Rx levothyroxine 50 mcg tablet 50 mcg PO DAILY #30 tab 10/07/20 10/13/20 Rx atorvastatin 10 mg tablet 10 mg PO QPM 10/13/20 10/13/20 History Allergies Allergy/AdvReac Type Severity Reaction Status Date / Time meprobamate Allergy Intermediate ITCHING Verified 10/13/20 21:06 propoxyphene Allergy Intermediate ITCHING Verified 10/13/20 21:06 salicylates Allergy Intermediate ITCHING; Verified 10/13/20 21:06 PT TAKES ASA AT HOME codeine Allergy Unknown unknown Verified 10/13/20 21:06 erythromycin base Allergy Unknown Unknown Verified 10/13/20 21:06 Xanthines Allergy Unknown Unknown Verified 10/13/20 21:06 ranitidine [From Zantac] AdvReac Mild vomiting. Verified 10/13/20 21:06 Past Med/Surg History Medical History Adenomatous duodenal polyp Aortic insufficiency Atrial fibrillation dx several years ago - on xarelto/BB - follows w/ Dr. Kamlesh Montalvo Barretts esophagus Carotid stenosis 50-69% ALMA, ~70% LICA, > 50% LECA per 03/18/20 carotid doppler. 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 Cifuentes for temporary vision loss 01/2020 -- undergoing workup for TIA/amaurosis fugax. Seen by [facility] cardio, had carotid US showing stenosis. Surgical History History of cataract surgery RIGHT AND LEFT History of colonoscopy Fiberoptic History of cystoscopy WITH STENT History of esophagogastroduodenoscopy (EGD) History of radical retropubic prostatectomy w/bilateral Pelv Lymphadenectomy Hx of lithotripsy Hx of repair of right rotator cuff Family History Father Myocardial infarction Stroke Mother Colorectal cancer Stroke Family/Other Prostate cancer Self Diabetes Daughter PONV (postoperative nausea and vomiting) Aunt Diabetes Brother Diabetes Other No family history of adverse response to anesthesia Denies family history of Ovarian cancer Breast cancer Social History Smoking Status: Former smoker Tobacco Type: Cigarettes Second Hand Exposure: Yes (FATHER SMOKED); Hx Alcohol Use: No Hx Substance Use: No Preferred Language: Sami Communication Ability: Effective Visual Impairment: No Limitations Engineering Technical 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 Required: No Beliefs That Will Affect Care: None marital status: Current Living Situation: Spouse current occupational status: retired Feels Safe at Home: Yes caffeine: No Dental Care, Regularly: No Physical Activity Frequency: Daily Seatbelt Use: always Sunscreen Use: No Assistive Devices: Denture - Upper, Denture - Lower, Glasses and Hearing Aid - Bilateral Review of Systems A total of 10 systems reviewed and were otherwise negative Physical Exam Vital Signs Vital Signs - 24 hr 10/13/20 20:34 10/13/20 20:55 10/13/20 21:00 Temperature 36.9 C Temperature Source Temporal Artery Scan Pulse Rate 96 H 99 H Respiratory Rate 20 24 Respiratory Effort / Characteristics Non-Labored Spontaneous Respiratory Depth Normal Blood Pressure 84/58 L 129/67 Blood Pressure Mean 66 87 Blood Pressure Position Sitting Pulse Oximetry 94 97 96 Oxygen Delivery Method Room Air Room Air Sepsis Recent Fever Within 48 Hours No Sepsis New/Unexplained Change in Mental Status N/A Sepsis Action Taken by Nursing No Action Required 10/13/20 21:06 10/13/20 21:12 10/13/20 22:00 Temperature Temperature Source Pulse Rate 95 H Respiratory Rate 24 Respiratory Effort / Characteristics Non-Labored Respiratory Depth Blood Pressure 103/61 Blood Pressure Mean 75 Blood Pressure Position Pulse Oximetry 97 97 95 Oxygen Delivery Method Room Air Room Air Sepsis Recent Fever Within 48 Hours Sepsis New/Unexplained Change in Mental Status Sepsis Action Taken by Nursing 10/13/20 22:30 Temperature Temperature Source Pulse Rate 87 Respiratory Rate 24 Respiratory Effort / Characteristics Respiratory Depth Blood Pressure 101/59 L Blood Pressure Mean 73 Blood Pressure Position Pulse Oximetry 96 Oxygen Delivery Method Sepsis Recent Fever Within 48 Hours Sepsis New/Unexplained Change in Mental Status Sepsis Action Taken by Nursing Physical Exam GENERAL: He is oriented to person, place, and time. He appears well-developed and well-nourished. He does not appear distressed. HENT: Exam performed. - Head: Normocephalic and atraumatic. - Right Ear: External ear normal. No mastoid tenderness. - Left Ear: External ear normal. No mastoid tenderness. - Mouth/Throat: The oropharynx is clear and moist. No trismus in the jaw. No dental abscesses or uvula swelling. No oropharyngeal exudate or tonsillar abscesses. EYES: Conjunctivae and EOM are normal. Pupils are equal, round, and reactive to light. Right eye exhibits no discharge. Left eye exhibits no discharge. No scleral icterus. NECK: Normal range of motion. Neck supple. No JVD present. No spinous process tenderness present. No carotid bruit present. No rigidity. No tracheal deviation and normal range of motion present. No Brudzinski's sign and no Kernig's sign noted. CV: Normal rate, irregular rhythm, normal heart sounds and intact distal pulses. There is no peripheral edema. Palpable radial pulses bue. PULM/CHEST: Rhonchi at the bilateral lung bases. ABD: The abdomen is soft. Bowel sounds are normal. He has no distension. No mass is present. There is no tenderness. There is no rebound, no guarding, no Hickman's sign and no tenderness at McBurney's point. Rovsig negative. MUSC/SKEL: Normal range of motion. There is no peripheral edema, tenderness or deformity. LYMPH: No cervical adenopathy. NEURO: He is alert and oriented to person, place, and time. He has normal strength. No cranial nerve deficit or sensory deficit. Coordination and gait normal. GCS eye subscore is 4. GCS verbal subscore is 5. GCS motor subscore is 6. Cerebellar tests wnl. SKIN: Skin is warm and dry. He is not diaphoretic. PSYCH: He has a normal mood and affect. Behavior is normal. Judgment and thought content normal. Course Course 2049: The patient was evaluated in room A9. A complete history and physical exam was performed Cardiac monitoring: An order was placed for continuous cardiac monitoring. The monitor shows a rate of 90 with atrial flutter rhythm 2229: Vital signs stable. Labs are significant for lactic acid of 3.3. Imaging does show right middle lobe/right lower lobe infiltrate. CT of the head is within normal limits. I discussed these findings with the patient, his , and his daughter at bedside. They state that the was recently treated for pneumonia also needed to be admitted to the hospital. Patient will be admitted and receive Rocephin and doxycycline. [facility]. Administered Medications Sodium Chloride (Nss 1000ml) 1,000 mls @ 999 mls/hr IV .Q1H1M ONE Stop: 10/13/20 23:25 Last Admin: 10/13/20 22:39 Dose: 999 mls/hr Documented by: [id number] Discontinued Medications Doxycycline Hyclate (Doxycycline Hyclate 100 Mg Cap) 100 mg PO NOW STA Stop: 10/13/20 22:22 Last Admin: 10/13/20 22:39 Dose: 100 mg Documented by: [id number] Ceftriaxone Sodium (Rocephin) 1,000 mg in 50 mls @ 100 mls/hr IV NOW STA Stop: 10/13/20 22:50 Last Admin: 10/13/20 22:39 Dose: 100 mls/hr Documented by: [id number] Medical Decision Making Laboratory Data Result diagrams: 10/13/20 20:55 10/13/20 20:55 Lab Results 10/13/20 10/13/20 10/13/20 Range/Units 20:37 20:55 20:55 WBC 6.41 (4.8-10.8) K/uL RBC 4.96 (4.7-6.1) M/uL Hgb 12.9 L (14.0-18.0) g/dL Hct 39.6 L (42-52) % MCV 79.8 L (80-100) fL MCH 26.0 (25-34) pg MCHC 32.6 (32-36) g/dL RDW Std Deviation 50.2 H (36.4-46.3) fL RDW Coeff of Dinora 17.3 H (11.5-14.5) % Plt Count 303 (130-400) K/uL MPV 9.8 (7.4-10.4) fL Immature Gran % (Auto) 0.8 % Neut % (Auto) 76.4 % Lymph % (Auto) 15.9 % [place] % (Auto) 6.4 % Eos % (Auto) 0.3 % Baso % (Auto) 0.2 % Neut # (Auto) 4.90 (1.4-6.5) K/uL Lymph # (Auto) 1.02 L (1.2-3.4) K/uL [place] # (Auto) 0.41 (0.11-0.59) K/uL Eos # (Auto) 0.02 (0-0.5) K/uL Baso # (Auto) 0.01 (0-0.2) K/uL Immature Gran # (Auto) 0.05 H (0.00-0.02) K/uL PT 12.1 H (9.0-12.0) Seconds INR 1.2 H (0.9-1.1) APTT 28.0 (21.0-31.0) Seconds PTT Ratio 1.1 Sodium (136-145) mmol/L Potassium (3.5-5.1) mmol/L Chloride (98-107) mmol/L Carbon Dioxide (21-32) mmol/L Anion Gap (3-11) BUN (7-18) mg/dl Creatinine (0.6-1.4) mg/dl Est Cr Clr Drug Dosing ml/min Est GFR ( Amer) ml/min Est GFR (Non-Af Amer) ml/min BUN/Creatinine Ratio (10-20) Glucose (70-99) mg/dl POC Glucose 204 H (70-99) mg/dl Lactate (0.4-2.0) mmol/L Calcium (8.5-10.1) mg/dl Magnesium (1.8-2.4) mg/dl Total Bilirubin (0.2-1) mg/dl AST (15-37) U/L ALT (12-78) U/L Alkaline Phosphatase (45-117) U/L Ammonia (11-32) umol/L Troponin I (0-0.045) ng/ml Total Protein (6.4-8.2) gm/dl Albumin (3.4-5.0) gm/dl Globulin (2.5-4.0) gm/dl Albumin/Globulin Ratio (0.9-2) Procalcitonin (0-0.5) ng/ml Urine Color Urine Appearance (Clear) Urine pH (4.5-7.5) Ur Specific [place] (1.000-1.030) Urine Protein (Negative) Urine Glucose (UA) (Negative) Urine Ketones (Negative) Urine Blood (Negative) Urine Nitrite (Negative) Urine Bilirubin (Negative) Urine Urobilinogen (Negative) Ur Leukocyte Esterase (Negative) Urine WBC (Auto) (0-5) /hpf Urine RBC (Auto) (0-4) /hpf U Hyaline Cast (Auto) (0-5) /lpf U Epithel Cells (Auto) (0-5) /lpf Urine Bacteria (Auto) (Negative) Lyme Disease IgG Ab (Negative) Lyme Disease IgM Ab (Negative) COVID-19 Eval Order 10/13/20 10/13/20 10/13/20 Range/Units 20:55 20:55 20:55 WBC (4.8-10.8) K/uL RBC (4.7-6.1) M/uL Hgb (14.0-18.0) g/dL Hct (42-52) % MCV (80-100) fL MCH (25-34) pg MCHC (32-36) g/dL RDW Std Deviation (36.4-46.3) fL RDW Coeff of Dinora (11.5-14.5) % Plt Count (130-400) K/uL MPV (7.4-10.4) fL Immature Gran % (Auto) % Neut % (Auto) % Lymph % (Auto) % [place] % (Auto) % Eos % (Auto) % Baso % (Auto) % Neut # (Auto) (1.4-6.5) K/uL Lymph # (Auto) (1.2-3.4) K/uL [place] # (Auto) (0.11-0.59) K/uL Eos # (Auto) (0-0.5) K/uL Baso # (Auto) (0-0.2) K/uL Immature Gran # (Auto) (0.00-0.02) K/uL PT (9.0-12.0) Seconds INR (0.9-1.1) APTT (21.0-31.0) Seconds PTT Ratio Sodium 135 L (136-145) mmol/L Potassium 4.4 (3.5-5.1) mmol/L Chloride 102 (98-107) mmol/L Carbon Dioxide 23 (21-32) mmol/L Anion Gap 10.0 (3-11) BUN 30 H (7-18) mg/dl Creatinine 1.47 H (0.6-1.4) mg/dl Est Cr Clr Drug Dosing 42.1 ml/min Est GFR ( Amer) 51.8 ml/min Est GFR (Non-Af Amer) 44.7 ml/min BUN/Creatinine Ratio 20.5 H (10-20) Glucose 196 H (70-99) mg/dl POC Glucose (70-99) mg/dl Lactate 3.3 H* (0.4-2.0) mmol/L Calcium 9.1 (8.5-10.1) mg/dl Magnesium 1.7 L (1.8-2.4) mg/dl Total Bilirubin 1.3 H (0.2-1) mg/dl AST 21 (15-37) U/L ALT 33 (12-78) U/L Alkaline Phosphatase 111 (45-117) U/L Ammonia (11-32) umol/L Troponin I < 0.015 (0-0.045) ng/ml Total Protein 7.6 (6.4-8.2) gm/dl Albumin 3.2 L (3.4-5.0) gm/dl Globulin 4.4 H (2.5-4.0) gm/dl Albumin/Globulin Ratio 0.7 L (0.9-2) Procalcitonin 0.05 (0-0.5) ng/ml Urine Color Urine Appearance (Clear) Urine pH (4.5-7.5) Ur Specific [place] (1.000-1.030) Urine Protein (Negative) Urine Glucose (UA) (Negative) Urine Ketones (Negative) Urine Blood (Negative) Urine Nitrite (Negative) Urine Bilirubin (Negative) Urine Urobilinogen (Negative) Ur Leukocyte Esterase (Negative) Urine WBC (Auto) (0-5) /hpf Urine RBC (Auto) (0-4) /hpf U Hyaline Cast (Auto) (0-5) /lpf U Epithel Cells (Auto) (0-5) /lpf Urine Bacteria (Auto) (Negative) Lyme Disease IgG Ab Negative (Negative) Lyme Disease IgM Ab Negative (Negative) COVID-19 Eval Order 10/13/20 10/13/20 10/13/20 Range/Units 20:55 21:55 22:27 WBC (4.8-10.8) K/uL RBC (4.7-6.1) M/uL Hgb (14.0-18.0) g/dL Hct (42-52) % MCV (80-100) fL MCH (25-34) pg MCHC (32-36) g/dL RDW Std Deviation (36.4-46.3) fL RDW Coeff of Dinora (11.5-14.5) % Plt Count (130-400) K/uL MPV (7.4-10.4) fL Immature Gran % (Auto) % Neut % (Auto) % Lymph % (Auto) % [place] % (Auto) % Eos % (Auto) % Baso % (Auto) % Neut # (Auto) (1.4-6.5) K/uL Lymph # (Auto) (1.2-3.4) K/uL [place] # (Auto) (0.11-0.59) K/uL Eos # (Auto) (0-0.5) K/uL Baso # (Auto) (0-0.2) K/uL Immature Gran # (Auto) (0.00-0.02) K/uL PT (9.0-12.0) Seconds INR (0.9-1.1) APTT (21.0-31.0) Seconds PTT Ratio Sodium (136-145) mmol/L Potassium (3.5-5.1) mmol/L Chloride (98-107) mmol/L Carbon Dioxide (21-32) mmol/L Anion Gap (3-11) BUN (7-18) mg/dl Creatinine (0.6-1.4) mg/dl Est Cr Clr Drug Dosing ml/min Est GFR ( Amer) ml/min Est GFR (Non-Af Amer) ml/min BUN/Creatinine Ratio (10-20) Glucose (70-99) mg/dl POC Glucose (70-99) mg/dl Lactate (0.4-2.0) mmol/L Calcium (8.5-10.1) mg/dl Magnesium (1.8-2.4) mg/dl Total Bilirubin (0.2-1) mg/dl AST (15-37) U/L ALT (12-78) U/L Alkaline Phosphatase (45-117) U/L Ammonia 45.0 H (11-32) umol/L Troponin I (0-0.045) ng/ml Total Protein (6.4-8.2) gm/dl Albumin (3.4-5.0) gm/dl Globulin (2.5-4.0) gm/dl Albumin/Globulin Ratio (0.9-2) Procalcitonin (0-0.5) ng/ml Urine Color Dark Yellow Urine Appearance Clear (Clear) Urine pH 5.0 (4.5-7.5) Ur Specific [place] 1.024 (1.000-1.030) Urine Protein 1+ H (Negative) Urine Glucose (UA) Negative (Negative) Urine Ketones Trace H (Negative) Urine Blood Negative (Negative) Urine Nitrite Negative (Negative) Urine Bilirubin 1+ H (Negative) Urine Urobilinogen Positive H (Negative) Ur Leukocyte Esterase Negative (Negative) Urine WBC (Auto) 1-5 (0-5) /hpf Urine RBC (Auto) 0-4 (0-4) /hpf U Hyaline Cast (Auto) 5-10 H (0-5) /lpf U Epithel Cells (Auto) 5-10 H (0-5) /lpf Urine Bacteria (Auto) Negative (Negative) Lyme Disease IgG Ab (Negative) Lyme Disease IgM Ab (Negative) COVID-19 Eval Order Covid19 at [facility] Imaging Data My Impression: Chest x-ray When compared to the chest x-ray in May 2020: Right middle/right lower lobe infiltrate. Airway clear. No free air under the diaphragm. Skeletal structures are intact. No cardiomegaly. ECG Data Indication: + weakness Rate (beats per minute): 93 Rhythm: + atrial flutter ECG Intervals/blocks: + Normal QRS and + Normal QT-c ECG ST segments: + Normal ST segments MDM Narrative Vital signs stable. Labs are significant for lactic acid of 3.3. Imaging does show right middle lobe/right lower lobe infiltrate. CT of the head is within normal limits. I discussed these findings with the patient, his , and his daughter at bedside. They state that the was recently treated for pneumonia also needed to be admitted to the hospital. Patient will be admitted and receive Rocephin and doxycycline. Patient will be admitted to the [facility] hospitalist team Dr. Schwartz notified. Impression & Plan Pneumonia Discharge Plan Visit Data Chief Complaint: Illness Stated Complaint: WEAKNESS-BLOOD SUGAR [id number] ED Provider: Chilango Plummer Discharge Problem: Pneumonia Patient Disposition: Admitted As Inpatient Forms Stand Alone Forms: My [facility] Prescriptions Prescriptions: No Action (DME) OneTouch Ultra Blue Test Strip strip See Dose Instructions .ROUTE .MEDSUPPLY Qty: 10 RF: 0 esomeprazole magnesium 20 mg capsule,delayed release(DR/EC) 20 mg PO QAM Qty: 90 RF: 3 metformin 500 mg tablet 500 mg PO BID Qty: 180 RF: 3 cholecalciferol (vitamin D3) 2,000 unit capsule 2,000 units PO QAM RF: 0 levothyroxine 50 mcg tablet 50 mcg PO DAILY Qty: 30 RF: 4 Eliquis 5 mg tablet 5 mg PO BID Qty: 180 RF: 3 acetaminophen [Tylenol Extra Strength] 500 mg tablet 500 mg PO Q8H PRN (Reason: Pain) RF: 0 aspirin 81 mg Tablet,Chewable 81 mg PO DAILY RF: 0 nitroglycerin 0.4 mg tablet, sublingual 0.4 mg sublingual UD PRN (Reason: Chest Pain) RF: 0 atorvastatin 10 mg tablet 10 mg PO QPM RF: 0 Referrals Referrals: Patt Mckeon CRNP [Primary Care Provider] - Discharge Problem: Pneumonia Qualifiers: Pneumonia type: due to unspecified organism Laterality: right Lung location: unspecified part of lung Qualified Code(s): J18.9 - Pneumonia, unspecified organism
[2020-10-14] MEDS ORDERED: MAGNESIUM SULFATE / D5W 1 GM/100 ML BAG IV STA
--- NOTE | 2020-10-14 00:03 | History & Physical Report ---
Date of Service October 14, 2020 Assessment & Plan (1) Weakness: Plan: 80yo male with multiple medical problems presenting with 3-4 weeks of weakness, fatigue as well as productive cough, occasional SOB. Patient is not ill in appearance. Exam is largely unremarkable, no rales/rhonchi/wheezes on exam. No RUQ tenderness. Patient with elevation of BUN and Cr from baseline which may be contributing to weakness and fatigue. He also has a mild elevation of Tbili, IN R and Ammonia with no known history of liver disease. -Admit to medical with telemetry -Check RUQ US and repeat LFTs in AM. Consider lactulose -Do not clearly see a RLL PNA on imaging and pulmonary exam is unremarkable. No leukocytosis. Procal is negative. ?early stages. ?dehydration limiting imaging. Will repeat CXR tomorrow after hydration PA/Lateral. Patient already received Ceftriaxone and Doxycycline in the ER. Will hold of on ordering additional antibiotics at this time -Check TSH and T4. Patient was off his Synthroid for approximately 1 month - restarted recently 10/07/20 -PT/OT evaluation (2) ROYAL (acute kidney injury): Plan: Patient with elevation of BUN and Cr from baseline, possibly contributing to his complaint of weakness/fatigue. Suspect volume contraction given recent poor po intake. -IVF - LR at 125mL/hr x 2 liters -Avoid nephrotoxic agents -Renal dosing where appropriate. -Monitor UOP and electroltyes -Repeat chemistry panel in AM (3) Coronary artery disease: Plan: Patient with CAD s/p CABG 4V performed in May 2020 at [facility] [place]. Surgery went well. Patient completed rehabilitation and has been doing well from a cardiac standpoint since. -Continue ASA -Continue Atorvastatin (4) Hypothyroidism: Plan: Chronic -Check TSH -Continue Synthroid 50mcg po daily (5) Type 2 diabetes mellitus: Plan: Chronic. Well controlled - last [id number]=7.3 on 06/25/20. Blood sugar elevated at 196. -Hold Metformin -Lantus 7u BID -ISS (6) Paroxysmal atrial fibrillation: Plan: Rate controlled -Continue Apixaban (7) GERD (gastroesophageal reflux disease): Plan: Chronic -Pepcid while inpatient. May resume Esomeprazole daily on discharge Plan: F/E/N - LR at 125mL/hr x 2 liters, Mg repletion, CC/AHA diet as tolerated Ppx - Patient on Apixaban for PAF Code - Full per discussion with patient Dispo - Admit to medical with telemetry History of Present Illness Chief Complaint: weakness, fatigue Primary Care Provider: TONIA Wise Cesar Schwartz is a 80yo male with history of CAD s/p CABG x4V in May 2020, DM, HTN, HLP and paroxysmal atrial fibrillation on Apixaban anticoagulation. Patient is complaining of approximately 3-4 weeks of generalized weakness and fatigue as well as poor appetite, decreased oral intake. He has also had a cough productive for thick, green sputum and some occasional shortness of breath as well as subjective fevers and chills. and daughter are at bedside and report that patient has occasional episodes of confusion as well and gait instability. This evening he was opening the gate at the end of the driveway and fell. He denies nausea, vomiting, diarrhea or constipation. He does have feeling of abdominal fullness and discomfort at times. He denies chest pain, focal weakn ess. Patient saw his PCP for these complaints on 10/07 - reported a 6# weight loss over the course of a week at that time. Patient had stopped his Synthroid for approximately 1 week which was restarted by his PCP on 10/07/20. Of note, was recently hospitalized for PNA ER Course: Ceftriaxone x 1gm, Doxycycline x 100mg, NSS x 1L Allergies Allergy/AdvReac Type Severity Reaction Status Date / Time meprobamate Allergy Intermediate ITCHING Verified 10/13/20 21:06 propoxyphene Allergy Intermediate ITCHING Verified 10/13/20 21:06 salicylates Allergy Intermediate ITCHING; Verified 10/13/20 21:06 PT TAKES ASA AT HOME codeine Allergy Unknown unknown Verified 10/13/20 21:06 erythromycin base Allergy Unknown Unknown Verified 10/13/20 21:06 Xanthines Allergy Unknown Unknown Verified 10/13/20 21:06 ranitidine [From Zantac] AdvReac Mild vomiting. Verified 10/13/20 21:06 Home Medications Medication Instructions Recorded Confirmed Type blood sugar diagnostic (OneTouch #10 ea 09/27/18 10/07/20 History Ultra Blue Test Strip) cholecalciferol (vitamin D3) 50 2,000 units PO QAM 10/17/18 10/13/20 History mcg (2,000 unit) capsule esomeprazole magnesium 20 mg 20 mg PO QAM #90 cap 05/13/20 10/13/20 Rx capsule,delayed release acetaminophen 500 mg tablet 500 mg PO Q8H PRN tab 06/12/20 10/13/20 History (Tylenol Extra Strength) aspirin 81 mg chewable tablet 81 mg PO DAILY 06/12/20 10/13/20 History metformin 500 mg tablet 500 mg PO BID #180 tab 06/17/20 10/13/20 Rx nitroglycerin 0.4 mg sublingual 0.4 mg SUBLINGUAL UD PRN 06/27/20 10/13/20 History tablet apixaban 5 mg tablet (Eliquis) 5 mg PO BID #180 tab 07/02/20 10/13/20 Rx levothyroxine 50 mcg tablet 50 mcg PO DAILY #30 tab 10/07/20 10/13/20 Rx atorvastatin 10 mg tablet 10 mg PO QPM 10/13/20 10/13/20 History Past Med/Surg History Medical History Adenomatous duodenal polyp Aortic insufficiency Atrial fibrillation dx several years ago - on xarelto/BB - follows w/ Dr. Kamlesh Montalvo Barretts esophagus Carotid stenosis 50-69% ALMA, ~70% LICA, > 50% LECA per 03/18/20 carotid doppler. 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 Cifuentes for temporary vision loss 01/2020 -- undergoing workup for TIA/amaurosis fugax. Seen by [facility] [place] cardio, had carotid US showing stenosis. Surgical History History of cataract surgery RIGHT AND LEFT History of colonoscopy Fiberoptic History of cystoscopy WITH STENT History of esophagogastroduodenoscopy (EGD) History of radical retropubic prostatectomy w/bilateral Pelv Lymphadenectomy Hx of lithotripsy Hx of repair of right rotator cuff Family History Father Myocardial infarction Stroke Mother Colorectal cancer Stroke Family/Other Prostate cancer Self Diabetes Daughter PONV (postoperative nausea and vomiting) Aunt Diabetes Brother Diabetes Other No family history of adverse response to anesthesia Denies family history of Ovarian cancer Breast cancer Social History Smoking Status: Former smoker Tobacco Type: Cigarettes Second Hand Exposure: Yes (FATHER SMOKED); Hx Alcohol Use: No Hx Substance Use: No Preferred Language: [place] Communication Ability: Effective Visual Impairment: No Limitations 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 Training Required: No Beliefs That Will Affect Care: None marital status: Current Living Situation: Spouse current occupational status: retired Feels Safe at Home: Yes caffeine: No Dental Care, Regularly: No Physical Activity Frequency: Daily Seatbelt Use: always Sunscreen Use: No Assistive Devices: Denture - Upper, Denture - Lower, Glasses and Hearing Aid - Bilateral Review of Systems Review of Systems: All systems reviewed & are unremarkable except as noted in HPI & below Multiple complaints as per HPI Physical Exam Physical Exam: General: patient resting comfortably, NAD, non-toxic in appearance, AA&O x 4, hard of hearing Skin: warm, dry, intact, no rashes or lesions HEENT: NC/AT, PERRL, EOMI, anicteric sclera, conjunctiva without injection, external ear normal to inspection and nontender, nares patent, moist mucus membranes, dentition intact, no oropharyngeal lesions, neck supple, trachea midline, no LAD, no thyromegaly, no JVD Heart: +S1/S2, irregularly irregular, no m/r/g, well healed sternotomy scar, stable sternum per palpation Lungs: equal air entry bilaterally, no rales/rhonchi/wheezes, +cough Abd: +BS, soft, NT/ND, no masses/organomegaly/ascites Ext: warm, 2+ pulses in UE/LE bilaterally, no clubbing/cyanosis or edema Neuro: nonfocal, patient AA&O x 4, speech intact, no facial droop, moving all extremities on command with equal strength 5/5 Results & Data Results & Data ([facility]) Vital Signs (Past 12 Hours) Vital Signs Temp Pulse Resp BP Pulse Ox 10/13/20 22:30 87 24 101/59 L 96 10/13/20 22:00 95 H 24 103/61 95 10/13/20 21:12 97 10/13/20 21:06 97 10/13/20 21:00 99 H 24 129/67 96 10/13/20 20:55 97 10/13/20 20:34 36.9 C 96 H 20 84/58 L 94 Laboratory Results Laboratory Results WBC 6.41 K/uL (4.8-10.8) 10/13/20 20:55 RBC 4.96 M/uL (4.7-6.1) 10/13/20 20:55 Hgb 12.9 g/dL (14.0-18.0) L 10/13/20 20:55 Hct 39.6 % (42-52) L 10/13/20 20:55 MCV 79.8 fL (80-100) L 10/13/20 20:55 MCH 26.0 pg (25-34) 10/13/20 20:55 MCHC 32.6 g/dL (32-36) 10/13/20 20:55 RDW Std Deviation 50.2 fL (36.4-46.3) H 10/13/20 20:55 RDW Coeff of Dinora 17.3 % (11.5-14.5) H 10/13/20 20:55 Plt Count 303 K/uL (130-400) 10/13/20 20:55 MPV 9.8 fL (7.4-10.4) 10/13/20 20:55 Immature Gran % (Auto) 0.8 % 10/13/20 20:55 Neut % (Auto) 76.4 % 10/13/20 20:55 Lymph % (Auto) 15.9 % 10/13/20 20:55 Anderson % (Auto) 6.4 % 10/13/20 20:55 Eos % (Auto) 0.3 % 10/13/20 20:55 Baso % (Auto) 0.2 % 10/13/20 20:55 Neut # (Auto) 4.90 K/uL (1.4-6.5) 10/13/20 20:55 Lymph # (Auto) 1.02 K/uL (1.2-3.4) L 10/13/20 20:55 Anderson # (Auto) 0.41 K/uL (0.11-0.59) 10/13/20 20:55 Eos # (Auto) 0.02 K/uL (0-0.5) 10/13/20 20:55 Baso # (Auto) 0.01 K/uL (0-0.2) 10/13/20 20:55 Immature Gran # (Auto) 0.05 K/uL (0.00-0.02) H 10/13/20 20:55 PT 12.1 Seconds (9.0-12.0) H 10/13/20 20:55 INR 1.2 (0.9-1.1) H 10/13/20 20:55 APTT 28.0 Seconds (21.0-31.0) 10/13/20 20:55 PTT Ratio 1.1 10/13/20 20:55 Sodium 135 mmol/L (136-145) L 10/13/20 20:55 Potassium 4.4 mmol/L (3.5-5.1) 10/13/20 20:55 Chloride 102 mmol/L (98-107) 10/13/20 20:55 Carbon Dioxide 23 mmol/L (21-32) 10/13/20 20:55 Anion Gap 10.0 (3-11) 10/13/20 20:55 BUN 30 mg/dl (7-18) H 10/13/20 20:55 Creatinine 1.47 mg/dl (0.6-1.4) H 10/13/20 20:55 Est Cr Clr Drug Dosing 42.1 ml/min 10/13/20 20:55 Est GFR ( Amer) 51.8 ml/min 10/13/20 20:55 Est GFR (Non-Af Amer) 44.7 ml/min 10/13/20 20:55 BUN/Creatinine Ratio 20.5 (10-20) H 10/13/20 20:55 Glucose 196 mg/dl (70-99) H 10/13/20 20:55 POC Glucose 204 mg/dl (70-99) H 10/13/20 20:37 Lactate 3.3 mmol/L (0.4-2.0) H* 10/13/20 20:55 Calcium 9.1 mg/dl (8.5-10.1) 10/13/20 20:55 Magnesium 1.7 mg/dl (1.8-2.4) L 10/13/20 20:55 Total Bilirubin 1.3 mg/dl (0.2-1) H 10/13/20 20:55 AST 21 U/L (15-37) 10/13/20 20:55 ALT 33 U/L (12-78) 10/13/20 20:55 Alkaline Phosphatase 111 U/L (45-117) 10/13/20 20: Ammonia 45.0 umol/L (11-32) H 10/13/20 21:55 Troponin I < 0.015 ng/ml (0-0.045) 10/13/20 20: Total Protein 7.6 gm/dl (6.4-8.2) 10/13/20 20: Albumin 3.2 gm/dl (3.4-5.0) L 10/13/20 20:55 Globulin 4.4 gm/dl (2.5-4.0) H 10/13/20 20:55 Albumin/Globulin Ratio 0.7 (0.9-2) L 10/13/20 20: Procalcitonin 0.05 ng/ml (0-0.5) 10/13/20 20:55 Urine Color Dark Yellow 10/13/20 20: Urine Appearance Clear (Clear) 10/13/20 20: Urine pH 5.0 (4.5-7.5) 10/13/20 20: Ur Specific [place] 1.024 (1.000-1.030) 10/13/20 20:55 Urine Protein 1+ (Negative) H 10/13/20 20:55 Urine Glucose (UA) Negative (Negative) 10/13/20 20: Urine Ketones Trace (Negative) H 10/13/20 20:55 Urine Blood Negative (Negative) 10/13/20 20: Urine Nitrite Negative (Negative) 10/13/20 20: Urine Bilirubin 1+ (Negative) H 10/13/20 20:55 Urine Urobilinogen Positive (Negative) H 10/13/20 20:55 Ur Leukocyte Esterase Negative (Negative) 10/13/20 20:55 Urine WBC (Auto) 1-5 /hpf (0-5) 10/13/20 20:55 Urine RBC (Auto) 0-4 /hpf (0-4) 10/13/20 20:55 U Hyaline Cast (Auto) 5-10 /lpf (0-5) H 10/13/20 20:55 U Epithel Cells (Auto) 5-10 /lpf (0-5) H 10/13/20 20:55 Urine Bacteria (Auto) Negative (Negative) 10/13/20 20:55 Lyme Disease IgG Ab Negative (Negative) 10/13/20 20:55 Lyme Disease IgM Ab Negative (Negative) 10/13/20 20:55 COVID-19 Eval Order Covid19 at [facility] 10/13/20 22:27 SARS-CoV-2 (PCR) NEGATIVE (Negative) 10/13/20 22:[address] Head - per STAT rad - no acute intracranial hemorrhage, mass-effect or midline shift. No skull fracture. Small stable region of encephalomalacia in the left occipital lobe. Scattered foci of subcortical and periventricular white matter hypoattenuation likely the sequela of chronic small vessel ischemic changes. Visualized paranasal sinuses and mastoid air cells are clear. Comparison made with the MRI from 04/02/2011 PG Care Time/CCT Total # of Minutes Spent Total Time Spent with Patient: Total time spent is greater than 50% in coordination of care (as documented) at patient's floor/unit and/or counseling patient: Coding Level of Care Code INT OBSERVATION CARE 70M LVL 3 Diagnoses Coronary artery disease I25.10 Hypothyroidism E03.9 Type 2 diabetes mellitus E11.9 Paroxysmal atrial fibrillation I48.0 GERD (gastroesophageal reflux disease) K21.9 ROYAL (acute kidney injury) N17.9 Weakness R53.1
[2020-10-14] MEDS ORDERED: GLUCOSE 40% GEL 15 GM TUBE PO PRN (02:42)
[2020-10-14] MEDS ORDERED: ONDANSETRON INJ 2 MG/ML 2 ML VIAL IV PRN (02:42)
[2020-10-14] MEDS ORDERED: GLUCOSE 10 TABS/TUBE PO PRN (02:42)
[2020-10-14] MEDS ORDERED: DEXTROSE 50% 50 ML SYRINGE IV PRN (02:42)
[2020-10-14] MEDS ORDERED: GLUCAGON FOR INJ 1 MG VIAL SQ PRN (02:42)
[2020-10-14] MEDS ORDERED: CARBOHYDRATES FOR HYPOGLYCEMIA PO PRN (02:42)
[2020-10-14] MEDS: LACTATED RINGER'S 1,000 ML IV SCH ×2 (02:56→10:21)
[2020-10-14] MEDS ORDERED: ACETAMINOPHEN 500 MG TAB PO PRN (03:16)
[2020-10-14 03:53] LABS: Creatine Kinase 31 U/L (39-308); Phosphorus 2.4 mg/dl (2.5-4.9)
[2020-10-14] MEDS: INSULIN ASPART 100 UNITS/ML 3 ML PEN SC SCH ×3 (05:28→12:26)
[2020-10-14 06:05] LABS: Basophils # (auto) 0.01 K/uL (0-0.2); Basophils % (auto) 0.2 %; Eosinophils # (auto) 0.05 K/uL (0-0.5); Hematocrit (blood only) 34.9 % (42-52); Hemoglobin 11.3 g/dL (14.0-18.0); Immature Granulocytes # (auto) 0.03 K/uL (0.00-0.02); Immature Granulocytes % (auto) 0.6 %; Lymphocytes # (auto) 1.68 K/uL (1.2-3.4); Lymphocytes % (auto) 32.7 %; Mean Corpuscular Hemoglobin 25.9 pg (25-34); Mean Corpuscular Hgb Conc 32.4 g/dL (32-36); Mean Platelet Volume 9.3 fL (7.4-10.4); Monocytes # (auto) 0.41 K/uL (0.11-0.59); Neutrophils # (auto) 2.95 K/uL (1.4-6.5); Neutrophils % (auto) 57.5 %; Platelet Count 258 K/uL (130-400); RDW Coefficient of Variation 17.4 % (11.5-14.5); RDW Standard Deviation 50.6 fL (36.4-46.3); Red Blood Count 4.36 M/uL (4.7-6.1); White Blood Count 5.13 K/uL (4.8-10.8)
[2020-10-14 06:26] LABS: Albumin Level 2.8 gm/dl (3.4-5.0); BUN Creatinine Ratio 24.2 (10-20); Calcium 8.4 mg/dl (8.5-10.1); Creatinine Clr Calc Pharmacy 56.5 ml/min; Est GFR (African American) 76.1 ml/min; Est GFR (Non-African American) 65.7 ml/min; Potassium 3.8 mmol/L (3.5-5.1)
[2020-10-14 06:30] LABS: Bilirubin Direct 0.4 mg/dl (0-0.2); Total Protein 6.6 gm/dl (6.4-8.2)
[2020-10-14] MEDS ORDERED: LEVOTHYROXINE SODIUM 50 MCG TABLET PO SCH (06:30)
--- NOTE | 2020-10-14 08:50 | CT Scan Report ---
CT head/brain wo con CLINICAL HISTORY: weakness lethargy COMPARISON STUDY: No previous studies for comparison. TECHNIQUE: Axial CT of the brain is performed from the vertex to the skull base. IV contrast was not administered for this examination. A dose lowering technique was utilized adhering to the principles of ALARA. CT DOSE: 614.27 mGy.cm FINDINGS: No acute intracranial hemorrhage, no midline shift or space occupying lesions. Small area of encephalomalacia is seen within left frontal and occipital lobes. There are patchy white matter hypodensities likely on a small vessel basis. Diffuse atrophic changes of brain parenchyma are seen and associated with mild ex vacuo dilatation of ventricles. There is no acute depressed skull fractures seen. Partial opacification of the left ethmoid air cells . The rest of visualized paranasal sinuses and mastoid air cells are patent and well-aerated. IMPRESSION: 1. No acute intracranial hemorrhage, no midline shift or space occupying lesions. 2. Old/chronic encephalomalacia involving left frontal and left occipital lobes. 3. Chronic small vessel ischemia and atrophic changes of brain parenchyma. 4. The rest of findings as above. 5. Vascular calcifications are seen. ACT 112: Negative or not required by law. The above report was generated using voice recognition software. It may contain grammatical, syntax o r spelling errors. Electronically signed by: Korina Gardner DO 10/14/2020 8:49 AM
--- NOTE | 2020-10-14 08:56 | Ultrasound Report ---
ABDOMINAL ULTRASOUND, RIGHT UPPER QUADRANT HISTORY: Abnormal LFTs. COMPARISON: Abdomen and pelvis CT 06/27/2020. FINDINGS: Pancreas: The pancreas demonstrates a normal echotexture. Liver: Unremarkable. Gallbladder: No gallbladder wall thickening. No gallstones. CBD: 7 mm. This is at the upper limits of normal for age. Right kidney: No hydronephrosis. IMPRESSION: No significant abnormality identified within the right upper quadrant. ACT 112: Negative or not required by law. Electronically signed by: Jamie George M.D. 10/14/2020 8:55 AM
[2020-10-14] MEDS ORDERED: FAMOTIDINE 40 MG TABLET PO SCH (09:00)
[2020-10-14] MEDS ORDERED: ASPIRIN 81 MG CHEW PO SCH (09:00)
[2020-10-14] MEDS ORDERED: APIXABAN 5 MG TABLET PO SCH (09:00)
[2020-10-14] MEDS ORDERED: INSULIN GLARGINE SOLOSTAR 100 UNITS/ML 3 ML PEN SC SCH (09:00)
--- NOTE | 2020-10-14 09:02 | XRay Report ---
XR chest 2V PA/lateral HISTORY: Sepsis. COMPARISON: Chest 10/13/2020. FINDINGS: The lungs are hyperexpanded with mild apical predominant emphysematous changes. No pneumoth orax. No pleural effusions. There are no focal lung consolidations to suggest pneumonia. No evidence for pulmonary edema. The heart is normal in size. There are poststernotomy changes. Nodular densities within the lung bases consistent with nipple shadows. Small linear scarlike density noted within the lingula. IMPRESSION: No focal lung consolidations to suggest pneumonia. ACT 112: Negative or not required by law. Electronically signed by: Jamie George M.D. 10/14/2020 9:00 AM
--- NOTE | 2020-10-14 09:09 | XRay Report ---
XR chest 1V portable CLINICAL HISTORY: SEPSIS COMPARISON STUDY: June 12, 2020 FINDINGS: No pneumothorax. No pleural effusion. No large infiltrates or consolidative lesions are seen. Cardiomediastinal silhouette is within normal limits in size. Minimal pulmonary vascular congestion.. Osseous structures: Mild degenerative changes of the spine. Interval placement of midline sternotomy wires and few clips in mediastinal region, could represent s tatus post CABG. Aorta is calcified. Interval placement of atrial clip. IMPRESSION: 1. No large infiltrates or consolidative lesions. 2. Interval surgical changes within cardiomediastinal region. Please correlate with prior history. 3. Mild pulmonary vascular congestion. ACT 112: Negative or not required by law. The above report was generated using voice recognition software. It may contain grammatical, syntax o r spelling errors. Electronically signed by: Korina Gardner DO 10/14/2020 9:08 AM
--- NOTE | 2020-10-14 15:33 | Discharge Summary ---
Date of Service October 14, 2020 Admission HPI Per Admitting Provider Cesar Schwartz is a 80yo male with history of CAD s/p CABG x4V in May 2020, DM, HTN, HLP and paroxysmal atrial fibrillation on Apixaban anticoagulation. Patient is complaining of approximately 3-4 weeks of generalized weakness and fatigue as well as poor appetite, decreased oral intake. He has also had a cough productive for thick, green sputum and some occasional shortness of breath as well as subjective fevers and chills. and daughter are at bedside and report that patient has occasional episodes of confusion as well and gait instability. This evening he was opening the gate at the end of the driveway and fell. He denies nausea, vomiting, diarrhea or constipation. He does have feeling of abdominal fullness and discomfort at times. He denies chest pain, focal weakness. Patient saw his PCP for these complaints on 10/07 - reported a 6# weight loss over the course of a week at that time. Patient had stopped his Synthroid for approximately 1 week which was restarted by his PCP on 10/07/20. Of note, was recently hospitalized for PNA ER Course: Ceftriaxone x 1gm, Doxycycline x 100mg, NSS x 1L Principal Diagnosis Fatigue -> Likely from dehydration from high blood sugars, bronchitis, and possibly hypothyroidism Discharge Exam Constitutional WD/WN, vitals as above Eyes EOM intact bilaterally; no conjunctival abnormality ENMT external ear and nose normal, oropharynx normal Neck trachea midline, no thyromegaly normal visual inspection Respiratory normal respiratory effort, lungs clear to auscultation no respiratory distress Cardiovascular RRR, no murmur, no edema Gastrointestinal (Abdomen) Inspection/Auscultation: abdomen normal to inspection; abdomen not distended Musculoskeletal no cyanosis or clubbing, extremities motor strength 5/5 Skin no rashes, warm and dry Neurologic moves all extremities and awake Psychiatric Orientation: alert, oriented to person and cooperative Discharge Data Allergies Allergy/AdvReac Type Severity Reaction Status Date / Time meprobamate Allergy Intermediate ITCHING Verified 10/13/20 21:06 propoxyphene Allergy Intermediate ITCHING Verified 10/13/20 21:06 salicylates Allergy Intermediate ITCHING; Verified 10/13/20 21:06 PT TAKES ASA AT HOME codeine Allergy Unknown unknown Verified 10/13/20 21:06 erythromycin base Allergy Unknown Unknown Verified 10/13/20 21:06 Xanthines Allergy Unknown Unknown Verified 10/13/20 21:06 ranitidine [From Zantac] AdvReac Mild vomiting. Verified 10/13/20 21:06 Consultations 10/13/20 22:26 ED Decision to Admit Stat Ordered Studies 10/13/20 20:57 CT head/brain wo con Stat 10/14/20 02:42 US liver Routine Hospital Course (1) Weakness: 80yo male with multiple medical problems presenting with 3-4 weeks of weakness, fatigue as well as productive cough, occasional SOB. Patient is not ill in appearance. Exam is largely unremarkable, no rales/rhonchi/wheezes on exam. No RUQ tenderness. Patient with elevation of BUN and Cr from baseline which may be contributing to weakness and fatigue. He also has a mild elevation of Tbili, INR and Ammonia with no known history of liver disease. -Admit to medical with telemetry -Check RUQ US and repeat LFTs in AM. Consider lactulose -Do not clearly see a RLL PNA on imaging and pulmonary exam is unremarkable. No leukocytosis. Procal is negative. ?early stages. ?dehydration limiting imaging. Will repeat CXR tomorrow after hydration PA/Lateral. Patient already received Ceftriaxone and Doxycycline in the ER. Will hold of on ordering sharon tional antibiotics at this time -Check TSH and T4. Patient was off his Synthroid for approximately 1 month - restarted recently 10/07/20 -PT/OT evaluation TSH was normal. Continue home levothyroxine. - Blood sugars had been running high at home, so after fluids, Cr went down. Encouraged good PO intake. Increased metformin slightly as he was not having side effects and was doing well with it. Can further uptitrate with PCP. - For possible bronchitis, started doxycycline x 5 days. No pneumonia seen on CXR. (2) ROYAL (acute kidney injury): Patient with elevation of BUN and Cr from baseline, possibly contributing to his complaint of weakness/fatigue. Suspect volume contraction given recent poor po intake. -IVF - LR at 125mL/hr x 2 liters -Avoid nephrotoxic agents -Renal dosing where appropriate. -Monitor UOP and electroltyes -Repeat chemistry panel in AM -> Back to baseline by discharge. (3) Coronary artery disease: Patient with CAD s/p CABG 4V performed in May 2020 at [facility]. Surgery went well. Patient completed rehabilitation and has been doing well from a cardiac standpoint since. -Continue ASA -Continue Atorvastatin (4) Hypothyroidism: Chronic -Continue Synthroid 50mcg po daily (5) Type 2 diabetes mellitus: Chronic. Well controlled - last [id number] on 06/25/20. Blood sugar elevated at 196. -Increase Metformin as above (6) Paroxysmal atrial fibrillation: Rate controlled -Continue Apixaban (7) GERD (gastroesophageal reflux disease): Chronic -Pepcid while inpatient. May resume Esomeprazole daily on discharge F/E/N - LR at 125mL/hr x 2 liters, Mg repletion, CC/AHA diet as tolerated Ppx - Patient on Apixaban for PAF Code - Full per discussion with patient Dispo - Admit to medical with telemetry Total Time Total Time Spent Total Time Spent (In Minutes): 35 Discharge Plan Discharge Items Patient Disposition: Home - Self-Care Reason For Visit: FATIGUE, MELAISE Discharge Diagnosis: Fatigue Activity: Resume your previous activity Non-emergency contact: Primary Care Provider Call non-emergency contact if: your symptoms worsen Follow-up/Referrals: Patt Mckeon CRNP [Primary Care Provider] - Diet: Carb Consistent or DM2 and Heart Healthy Addtl Attending Provider Instructions: Mr. Schwartz was admitted for fatigue and weakness. He was not found to have any infections, but was found to be dehydrated. This was likely due to higher blood sugars at home. He reported the blood sugars as being higher due to stress from his being admitted to the hospital. We restarted his levothyroxine and also increased his metformin. He reports his blood sugars as often being 100 - 130 in the mornings. Take two tablets (1,000 mg) every morning of metformin and 1 tablet (500 mg) every evening. Finally for a cough, we did start doxycycline for some bronchitis. Chest x-ray did not show any pneumonia. Pending Studies at Discharge: No Stand-Alone Forms: My [facility] [employer] Smoking Cessation Medications and DC Order Prescriptions: New doxycycline hyclate 100 mg capsule 100 mg PO BID Qty: 10 RF: 0 metformin 500 mg tablet 500 mg PO HS Qty: 30 RF: 0 Continued (DME) OneTouch Ultra Blue Test Strip strip See Dose Instructions .ROUTE .MEDSUPPLY Qty: 10 RF: 0 esomeprazole magnesium 20 mg capsule,delayed release(DR/EC) 20 mg PO QAM Qty: 90 RF: 3 cholecalciferol (vitamin D3) 2,000 unit capsule 2,000 units PO QAM RF: 0 levothyroxine 50 mcg tablet 50 mcg PO DAILY Qty: 30 RF: 4 Eliquis 5 mg tablet 5 mg PO BID Qty: 180 RF: 3 acetaminophen [Tylenol Extra Strength] 500 mg tablet 500 mg PO Q8H PRN (Reason: Pain) RF: 0 aspirin 81 mg Tablet,Chewable 81 mg PO DAILY RF: 0 nitroglycerin 0.4 mg tablet, sublingual 0.4 mg sublingual UD PRN (Reason: Chest Pain) RF: 0 atorvastatin 10 mg tablet 10 mg PO QPM RF: 0 Changed metformin 500 mg tablet 1,000 mg PO QAM Qty: 180 RF: 3 Discharge Orders: Discharge Order (Routine); Ordered 10/14/20 Ordered By: Lj Mathis Admission Data Admit Date/Time: 10/14/20 00:00 Attending Provider: Lj Mathis Admit Provider: Violette Schwartz Primary Care Provider: Patt Mckeon. Other Providers: Lj Mathis Coding Level of Care Code OBSERV/HOSP SAME DATE LVL 3 Diagnoses Weakness R53.1 ROYAL (acute kidney injury) N17.9 Coronary artery disease I25.10 Hypothyroidism E03.9 Type 2 diabetes mellitus E11.9 Paroxysmal atrial fibrillation I48.0 GERD (gastroesophageal reflux disease) K21.9
--- NOTE | 2020-10-14 16:24 | Electrocardiogram Report ---
Test Reason : Blood Pressure : / mmHG Vent. Rate : 093 BPM Atrial Rate : 330 BPM P-R Int : 000 ms QRS Dur : 084 ms QT Int : 332 ms P-R-T Axes : 000 091 061 degrees QTc Int : 412 ms Poor data quality, interpretation may be adversely affected Atrial flutter with variable A-V block Rightward axis Abnormal ECG When compared with ECG of 27-JUN-2020 02:46, Atrial flutter has replaced Atrial fibrillation Confirmed by Juan Carlos Whitlock ([id number]) on 10/14/2020 4:24:18 PM Referred By: REFERRED SELF Confirmed By:Juan Carlos Whitlock
[2020-10-14] MEDS ORDERED: ATORVASTATIN 10 MG TAB PO SCH (21:00)
== END 2020-10-14 16:12 | disposition home or self-care (01) ==
LOC: ED 20:25 → 2S 20:25 → SUATTDRO 10-14 → 2S 10-14 02:21

== ENCOUNTER 2023-09-07 07:36 | Inpatient (IN) ==
--- NOTE | 2023-08-13 11:50 | PAT Medication Instructions ---
Medication Instructions Date of Service August 13, 2023 Home Medications Medication Instructions Recorded apixaban 5 mg tablet (Eliquis) 5 mg PO BID #180 tabs 06/08/22 atorvastatin 10 mg tablet 10 mg PO QPM #90 tabs 10/08/22 levothyroxine 50 mcg tablet 50 mcg PO QAM #90 tabs 10/08/22 blood sugar diagnostic (OneTouch #100 ea 01/05/23 Ultra Test strips) blood-glucose meter (OneTouch #1 ea 01/05/23 Ultra2 Meter) esomeprazole magnesium 20 mg 20 mg PO QAM #90 caps 05/10/23 capsule,delayed release blood-glucose meter,continuous #1 ea 06/18/23 (FreeStyle Jada 3 [place]) blood-glucose sensor (FreeStyle #2 ea 08/09/23 Jada 3 Sensor device) acetaminophen 500 mg tablet (Tylenol Extra Strength) 500 mg PO Q8H PRN Pain apixaban 5 mg tablet (Eliquis) 5 mg PO BID atorvastatin 10 mg tablet 10 mg PO QPM levothyroxine 50 mcg tablet 50 mcg PO QAM esomeprazole magnesium 20 mg capsule,delayed release 20 mg PO QAM aspirin 81 mg tablet,delayed release 81 mg PO QAM cholecalciferol (vitamin D3) 25 mcg (1,000 unit) tablet (Vitamin D3) 25 mcg PO QAM metformin 500 mg tablet 500 - 1,000 mg PO UD ASK your prescriber and surgeon apixaban 5 mg tablet (Eliquis) 5 mg PO BID aspirin 81 mg tablet,delayed release 81 mg PO QAM DO NOT take the morning of surgery cholecalciferol (vitamin D3) 25 mcg (1,000 unit) tablet (Vitamin D3) 25 mcg PO QAM metformin 500 mg tablet 500 - 1,000 mg PO UD Take morning of surgery With a small sip of water, OTHERWISE NOTHING TO EAT OR DRINK AFTER MIDNIGHT: acetaminophen 500 mg tablet (Tylenol Extra Strength) 500 mg PO Q8H PRN Pain (if needed) levothyroxine 50 mcg tablet 50 mcg PO QAM esomeprazole magnesium 20 mg capsule,delayed release 20 mg PO QAM Take evening before surgery acetaminophen 500 mg tablet (Tylenol Extra Strength) 500 mg PO Q8H PRN Pain (if needed) atorvastatin 10 mg tablet 10 mg PO QPM metformin 500 mg tablet 500 - 1,000 mg PO UD Other Notes If you have any questions please call us at [phone] or [phone] or [phone] or [phone]
--- NOTE | 2023-08-16 09:45 | Anesthesiology Consultation ---
Date of Service August 16, 2023 Assessment & Plan (1) Encounter for pre-operative examination: Chart Review Chart Review: Acceptable Risk for Surgery and Patient NOT seen in Pre Admission Testing - Check BSG AM DOS Patient wears Dexcom on UE Per PAT appt on 08/16/23, no recent illness/disease exposures, illness related symptoms, or recent illness/disease positive tests. Will leave to surgeon's discretion if preop Covid testing needed Patient seen by neuro 08/03/23= Patient seen for having a few months of behavioral changes and cognitive issues in March 2023. Feeling much better currently and cognition has improved but with short-term memory issues. MRI of the brain recently noted left parietal and occipital area T2 changes likely chronic/subacute vascular disease and likely ischemic stroke. CTA of the neck showing left ICA 90% stenosis in right ICA also with stenosis. Patient with A- fib and on Eliquis. Patient without weakness or speech changes and overall feeling better and did show improvement overall last month. Referred to vascular surgery. Patient seen by cardiology 07/13/23= Patient presents for follow-up to review recent studies. History of CAD with four-vessel CABG in 2020, hypertension, paroxysmal atrial fibrillation. Since CABG in atient has done well from a cardiac standpoint. Holter monitor 2020 showed asymptomatic, rate controlled atrial flutter. Seen in May 2023 for dizziness and questionable episodes of loss of consciousness. Repeat echo done at that time. Event monitor showed no arrhythmia correlating with dizzy spells. Carotid testing done. MRI showed changes consistent with chronic microvascular disease and involution changesquestion of subacute lacunar infarct in left parietal lobe. CAD- s/p 4 vessel CABG 2020. A fib- on Eliquis, post surgical atrial clip (consider discontinuation anticoagulation if bleeding issues). Patient struggling with cognitive decline and intermittent spells which seem to be related to progressive dementia. Does have severe carotid artery disease in the left but no clear CVA imaging or by history. From a cardiac standpoint things are stable. No need for additional ischemic testing. Discussed potential vascular surgery evaluation for carotid artery revascularization for asymptomatic carotid artery disease. Continue current medications follow-up in 6 months. History Surgery Operation Date: 09/07/23 10:10 Proposed Procedures p Left Transcarotid Artery Revascularization - Robson Kaur MD Height/Weight Height: 5 ft 10 in Weight: 80.1 kg Allergies Allergy/AdvReac Type Severity Reaction Status Date / Time meprobamate Allergy Mild ITCHING Verified 08/13/23 08:34 propoxyphene Allergy Mild ITCHING Verified 08/13/23 08:34 codeine Allergy Unknown hallucinati Verified 08/13/23 09:08 ons erythromycin base Allergy Unknown PT IS NOT Verified 08/13/23 08:34 SURE - SEE NOTES BELOW salicylates Allergy Unknown NOT SURE Verified 08/13/23 08:34 Xanthines Allergy Unknown NOT SURE Verified 08/13/23 08:34 ranitidine [From Zantac] AdvReac Mild vomiting ? Verified 08/13/23 08:34 /NOT SURE Medications Home Medications Medication Instructions Recorded Confirmed Last Taken acetaminophen 500 mg tablet 500 mg PO Q8H PRN Pain 06/12/20 08/13/23 Unknown (Tylenol Extra Strength) apixaban 5 mg tablet (Eliquis) 5 mg PO BID #180 tabs 06/08/22 08/13/23 09/05/22 atorvastatin 10 mg tablet 10 mg PO QPM #90 tabs 10/08/22 08/13/23 Unknown levothyroxine 50 mcg tablet 50 mcg PO QAM #90 tabs 10/08/22 08/13/23 Unknown blood sugar diagnostic (OneTouch #100 ea 01/05/23 08/03/23 Unknown Ultra Test strips) blood-glucose meter (OneTouch #1 ea 01/05/23 08/03/23 Unknown Ultra2 Meter) esomeprazole magnesium 20 mg 20 mg PO QAM #90 caps 05/10/23 08/13/23 Unknown capsule,delayed release blood-glucose meter,continuous #1 ea 06/18/23 08/03/23 Unknown (FreeStyle Jada 3 [place]) blood-glucose sensor (FreeStyle #2 ea 08/09/23 Unknown Jada 3 Sensor device) aspirin 81 mg tablet,delayed 81 mg PO QAM 08/13/23 08/13/23 Unknown release cholecalciferol (vitamin D3) 25 25 mcg PO QAM 08/13/23 08/13/23 Unknown mcg (1,000 unit) tablet (Vitamin D3) metformin 500 mg tablet 500 - 1,000 mg PO UD 08/13/23 08/13/23 Unknown clopidogrel 75 mg tablet (Plavix) 75 mg PO DAILY 08/16/23 08/16/23 Unknown Past Medical History Medical History Atrial fibrillation dx several years ago; currently on eliquis; f/u tejas hadley Barretts esophagus hx- follows routinely for EGDs Carotid stenosis Per neck CTA 07/01/23= left ICA 90% stenosis; < 50% stenosis of right ICA Cerebral vascular disease 07/01/23 brain MRI showing findings related to "underlying chronic microvascular ischemic disease. A subacute lacunar infarct could appear similarly. 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 Cifuentes for temporary vision loss 01/2020 Exercise / Class Metabolic Activity II 4-5 Yardwork/Stairs/Walk up hill (one flight of stairs- no chest pain or SOB ) Past Family History Family History Father Myocardial infarction Stroke Mother Colorectal cancer Stroke Family/Other Prostate cancer Self Diabetes Daughter PONV (postoperative nausea and vomiting) Aunt Diabetes Brother Diabetes Denies family history of Ovarian cancer Breast cancer Past Surgical History Surgical History History of cardiac cath 2020/blockages...quadruple bypass sx.; f/u tejas hadley History of cataract surgery RIGHT AND LEFT History of colonoscopy Fiberoptic History of cystoscopy WITH STENT History of esophagogastroduodenoscopy (EGD) History of radical retropubic prostatectomy 2005, w/bilateral Pelv Lymphadenectomy Hx of CABG 06/04/20, [facility], quadruple; f/u tejas hadley Hx of lithotripsy Hx of repair of right rotator cuff Past Anesthesia History No Hx of Anesthesia Complications and No Family Hx of Anesthesia Complications History of PONV No Hx of PONV and No Hx of Motion Sickness Social History Smoking Status: Former smoker tobacco type: cigarettes and smokeless tobacco Do You Dip or Chew Tobacco: No (hx quit in 1986; advised) Smoking End Date: 04/11/86 Hx Alcohol Use: Yes Alcohol type: beer alcohol intake frequency: holidays/special occasions only Hx Substance Use: No substance use type: does not use Review of Systems - Chronic mild cough- x years- stable- due to post nasal drip - Occ takes deep inspirations- denies significant SOB - Snoring- hx of sleep study many years- no ZAC at htat time - Possible blood transfusion with CABG 2020 Patient denies chest pain, shortness of breath, dyspnea on exertion, reflux, cough, wheezing, palpitations. No hx of seizures. Physical Exam Vital Signs VITALS BP 119/72 P 52 TEMP 97.6 SP02 98% RESP 16 Constitutional no acute distress ENMT Mouth: no TMJ clicking Thyromental Distance: > or= 3.5 Finger Breadths (3.5) Mallampati Class: I Neck + limited neck extension (mild) and + facial hair (advised to trim/shave ) Respiratory normal respiratory effort; no respiratory distress Auscultation: lungs clear to auscultation bilaterally; no wheezes Cardiovascular Heart Sounds: no murmur Vessels: no carotid bruit Irregular rhythm- rate controlled Musculoskeletal Spine: + pain with cervical ROM (mild tightness ) Extremities: extremities normal to inspection Psychiatric Orientation: alert Lab Results Anesthesia Preop Results Results Anesthesia Widget: WBC 5.40 K/ul (4.8-10.8) 08/16/23 Hgb 14.2 g/dl (14.0-18.0) 08/16/23 Hct 43.1 % (42.0-52.0) 08/16/23 Plt 209 K/uL (130-400) 08/16/23 Na 142 mmol/L (136-145) 08/16/23 K 4.7 mmol/L (3.5-5.1) 08/16/23 Cl 109 mmol/L (98-107) H 08/16/23 CO2 26 mmol/L (21-32) 08/16/23 BUN 34 mg/dl (6-23) H 08/16/23 Creat 1.24 mg/dl (0.6-1.4) 08/16/23 Glucose Level 100 mg/dl (70-99(Fasting)) H 08/16/23 PT 12.0 Seconds (9.0-12.0) 08/16/23 PTT 32 Seconds (21-31) H 08/16/23 INR 1.1 (0.9-1.1) 08/16/23 TSH 4.120 uIu/ml (0.300-4.500) 07/07/23 HA1c 6.5 % (4.5-5.6) H 08/16/23 Blood Type B Positive 08/16/23 Antibody Screen NEGATIVE 08/16/23 Testing Electrocardiogram Date: 08/16/23 Atrial fibrillation with slow ventricular response at 52bpm Nonspecific ST abnormality Chest X-Ray Date: 08/16/23 FINDINGS: PA and lateral chest radiographs are compared to study dated 10/14/2020. The patient is status post midline sternotomy. The heart is enlarged noting atherosclerotic calcification of the thoracic aorta. The pulmonary vasculature is noncongested. Chronic interstitial thickening is similar to previous. There is bibasilar scarring/atelectasis. The lungs and pleural spaces are otherwise clear. There is no pneumothorax. The skeletal structures are osteopenic. The bony thorax appears intact. IMPRESSION: Cardiomegaly with no active disease in the chest. Echocardiogram Date: 05/27/23 EF: 60-65% LV Function: normal RWMA: + none Other Findings: + LVH (mild/concentric ) Mild TR Mild aortic root dilation. Compared with study 07/02/2020- no significant change Stress Test Date: 05/23/20 Type: DSE Abnormal DSE at 86% MPHR. [place] became HK at peak dobutamine infusion. Negative stress EKG for myocardial ischemia at MPHR 86%. Baseline ECHO notes normal LV function Cardiac Catheterization Date: 05/29/20 Findings: LM -normal caliber, 20% distal LAD -medium caliber, 95+% proximal to mid disease at takeoff of small first diagonal mild mid segment disease, distal vessel with luminal irregularities and tapers prior to apex. Medium caliber D2 without significant disease. Circumflex -moderate caliber, 70 to 80% hazy mid segment stenosis OM 2 without significant disease. RCA -dominant, JULIANNA I flow prior to 100% distal RCA occlusion. PDA/PLB's fill via [id number] collaterals. Summary: 1. Severe multivessel coronary artery disease -95+% proximal to mid LAD stenosis 70 to 80% hazy mid circumflex stenosis 100% distal RCA occlusion. PDA/PLB partially fill via [id number] collaterals. 2. Normal intracardiac filling pressure Patient had subsequent 4 vessel CABG Other Testing Neck CTA 07/01/23=There is approximately 90% focal stenosis at the origin of the left internal carotid artery. There is less than 50% luminal narrowing at the origin of the right internal carotid artery. Vertebral arteries are patent bilaterally. An aberrant right subclavian artery is incidentally noted. Emphysema. Brain MRI 07/01/23= No acute intracranial hemorrhage, midline shift or acute territorial infarct. Ill-defined 7 mm focus of slightly increased diffusion- weighted signal within the periventricular left parietal lobe is likely related to T2 shine-through with underlying chronic microvascular ischemic disease. A subacute lacunar infarct could appear similarly. Involutional changes with chronic microvascular ischemic disease, progressively worsened compared to the 2012 comparison. Encephalomalacia and gliosis related to chronic infarcts. Event monitor 06/01/23= Predominantly SR. Paroxysmal AF (50-145; average 64bpm; 35% burden). Frequent PVCs (5% of beats). Occ PACs. Rare NSVT (longest 6 beats). Dizzy correlated with SR. Dyspnea, chest pain correlated both with SR and AF with PVCs
--- NOTE | 2023-09-06 16:07 | History & Physical Report ---
Date of Service September 06, 2023 History of Present Illness Primary Care Provider: TONIA Wise Reason for Consultation Left internal carotid artery stenosis History of Present Illness I had pleasure seeing Cesar today for evaluation of his carotid disease. He knows he is 83-year-old gentleman who had a decrease in his cognitive ability and behavioral changes in March of this year. In his workup following this he was found to have left parieto-occipital area changes on his MRI consistent with chronic subacute vascular disease and likely ischemic stroke. His CT angiogram done this month showed a 90% stenosis of his left internal carotid artery and moderate plaque of his right carotid. He is asymptomatic at this time from carotid disease. He is right-handed. He is a former smoker. Does have atrial fibrillation on Eliquis. He also has had a coronary artery bypass grafting in the past. He is diabetic and hypertensive. He also has a history of prostate cancer and a retropubic prostatectomy. Review of Systems 10 systems reviewed. Positive findings included occasional chest pain heart failure irregular heartbeat. He also complains of occasional cough with shortness of breath. Heartburn diarrhea. He does have a history of kidney stones and incontinence secondary to his prostate surgery. Physical Exam Vitals & Measurements HR: 53 (Monitored) BP: 124/60 SpO2: 98% Input and Output - Last 24 hours (Last 8 hours) No I/O Data Found: On physical exam he is awake alert and oriented to 3. His blood pressure is 130/64 in the left 124/60 on the right. His radials are present +2 bilaterally. I do hear soft carotid bruits on both sides. His lungs are clear. Heart had a regular rate and rhythm. Abdominal exam is benign. No abnormal dilatation was appreciated. Femorals and pedal pulses are +2 bilaterally. Neurologic exams intact motor and sensory function. Diagnostic Results CT angiogram shows a 90% narrowing of the left internal carotid artery and a 50% narrowing of his right internal carotid Assessment/Plan 1. Carotid stenosis, bilateral Due to moderate narrowing of the carotid recommended intervention of the left carotid. We went over the risks options benefits of endarterectomy versus TCAR. He is elected to go ahead with the TCAR procedure of the left carotid. Risks options and benefits of this procedure were discussed with the patient and documented in the consent form. He is agreeable to go ahead with this procedure and understood the risks involved. Will keep informed as to his results. Thank you very much for letting us participate in the care of this patient. Sincerely, Louisa Kaur MD Attestation I have personally spent ___35__ minutes performing [id number] and [id number] activities on this date of service. Activities Include: __x review of the medical record __x obtaining a history _x_ physical exam/evaluation __ review labs __x review radiology reports _x_ counseling/educating patient/family/caregiver __ discussion/referral to other healthcare professional _x_ documenting care in the medical record _x_ independent interpretation of results cta at [facility] __ communication of results to patient/family/caregiver __ coordination of care Problem List/Past Medical History Ongoing Aortic insufficiency Atrial fibrillation Barretts esophagus Carotid stenosis Carotid stenosis, bilateral Diabetes mellitus, type 2 GERD with apnea Prostate cancer Skin cancer Transient ischemic attack Procedure/Surgical History Colonoscopy| Service Date: 05/17/2020 Ultrasound--right upper quadrant| Service Date: 07/05/2018 Medications Home apixaban(Eliquis 5 mg oral tablet), 5 mg= 1 tab, PO, bid aspirin(aspirin 81 mg oral tablet, chewable), 81 mg= 1 tab, PO, Daily aspirin(aspirin 81 mg oral tablet, chewable), 1 tab, PO, Daily, 11 refills atorvastatin(atorvastatin 10 mg oral tablet), 10 mg= 1 tab, PO, Daily cholecalciferol, 25 mcg, PO, Daily clopidogrel(Plavix 75 mg oral tablet), 1 tab, PO, Daily, 11 refills esomeprazole(esomeprazole 20 mg oral delayed release capsule), 20 mg= 1 cap, PO, Daily fluorouracil topical(Efudex 5% topical cream), 1 appl, topical, bid levothyroxine(Synthroid 50 mcg (0.05 mg) oral tablet), 50 mcg= 1 tab, PO, Daily metFORMIN(metFORMIN 500 mg oral tablet), See Instructions Allergies Ranitidine Hydrochloride vomiting codeine unknown erythromycin unknown meprobamate Propoxyphene hydrochloride, itching propoxyphene itching Social History Smoking Status Former Smoker, quit > 1 yr Signature Line Electronic Signature on File Robson Kaur MD Author Signature Dt/Tm: 08/12/2023 10:02 AM Copy Manager Andres Elena [facility] [place] [address], [address] [place] [address] EJS Result Type: .Outpt Ltr Date of Service: August 12, 2023 09:54 EDT Authorization Status: Final Subject: Consult Note Author or Import Date: MD Kaur Eugene J on August 12, 2023 10:02 EDT Verified By: MD Kaur Eugene J on August 12, 2023 10:02 EDT Encounter info: [id number], [facility], Clinic, 08/12/2023 - 08/12/2023 Allergies Allergy/AdvReac Type Severity Reaction Status Date / Time meprobamate Allergy Mild ITCHING Verified 08/13/23 08:34 propoxyphene Allergy Mild ITCHING Verified 08/13/23 08:34 codeine Allergy Unknown hallucinati Verified 08/13/23 09:08 ons erythromycin base Allergy Unknown PT IS NOT Verified 08/13/23 08:34 SURE - SEE NOTES BELOW salicylates Allergy Unknown NOT SURE Verified 08/13/23 08:34 Xanthines Allergy Unknown NOT SURE Verified 08/13/23 08:34 ranitidine [From Zantac] AdvReac Mild vomiting ? Verified 08/13/23 08:34 /NOT SURE Home Medications Medication Instructions Recorded Confirmed Type acetaminophen 500 mg tablet 500 mg PO Q8H PRN Pain 06/12/20 08/13/23 History (Tylenol Extra Strength) atorvastatin 10 mg tablet 10 mg PO QPM #90 tabs 10/08/22 08/13/23 Rx levothyroxine 50 mcg tablet 50 mcg PO QAM #90 tabs 10/08/22 08/13/23 Rx blood sugar diagnostic (OneTouch #100 ea 01/05/23 08/03/23 Rx Ultra Test strips) blood-glucose meter (OneTouch #1 ea 01/05/23 08/03/23 Rx Ultra2 Meter) esomeprazole magnesium 20 mg 20 mg PO QAM #90 caps 05/10/23 08/13/23 Rx capsule,delayed release blood-glucose meter,continuous #1 ea 06/18/23 08/03/23 Rx (FreeStyle Jada 3 [place]) blood-glucose sensor (FreeStyle #2 ea 08/09/23 Rx Jada 3 Sensor device) aspirin 81 mg tablet,delayed 81 mg PO QAM 08/13/23 08/13/23 History release cholecalciferol (vitamin D3) 25 25 mcg PO QAM 08/13/23 08/13/23 History mcg (1,000 unit) tablet (Vitamin D3) metformin 500 mg tablet 500 - 1,000 mg PO UD 08/13/23 08/13/23 History clopidogrel 75 mg tablet (Plavix) 75 mg PO DAILY 08/16/23 08/16/23 History apixaban 5 mg tablet (Eliquis) 5 mg PO BID #180 tabs 08/30/23 Rx Past Med/Surg History Problem List Encounter for pre-operative examination MCI (mild cognitive impairment) Carotid artery disease Fatigue S/P ureteral stent placement GERD (gastroesophageal reflux disease) Gout Left ventricular hypertrophy Male erectile disorder of organic origin Paroxysmal atrial fibrillation Peripheral vascular disease Psoriasis Type 2 diabetes mellitus Vitamin D deficiency Hyperlipidemia Price esophagus Prostate cancer DX 2005 SURGICAL INTERVENTION Diverticulosis of colon hx Medical History Atrial fibrillation dx several years ago; currently on eliquis; f/u tejas hadley Barretts esophagus hx- follows routinely for EGDs Carotid stenosis Per neck CTA 07/01/23= left ICA 90% stenosis; < 50% stenosis of right ICA Cerebral vascular disease 07/01/23 brain MRI showing findings related to "underlying chronic microvascular ischemic disease. A subacute lacunar infarct could appear similarly. " Coronary artery disease s/p 4 vessel CABG 2020 Dementia recently dx per dtr DM type 2 (diabetes mellitus, type 2) NIDDM- blood sugar fluctuates Former smoker GERD (gastroesophageal reflux disease) well controlled and stable Hearing deficit BL THURMAN History of DVT (deep vein thrombosis) Left lower extremity DVTpost CABG 2020 per cardio records History of nephrolithiasis Currently- follows with urology- currently asymptomatic History of prostate cancer dx 2005, s/p prostatectomy - no chemo or XRT History of skin cancer removed from ear HTN (hypertension) No meds needed Hx of gout No recent issues Hypercholesterolemia Hypothyroidism Mild cognitive impairment recently dx 07/2023, with tejas preston On anticoagulant therapy Transient ischemic attack (TIA) Seen by Dr. Cifuentes for temporary vision loss 01/2020 Surgical History History of cardiac cath 2020/blockage...quadruple bypass sx.; f/u tejas hadley History of cataract surgery RIGHT AND LEFT History of colonoscopy Fiberoptic History of cystoscopy WITH STENT History of esophagogastroduodenoscopy (EGD) History of radical retropubic prostatectomy 2005, w/bilateral Pelv Lymphadenectomy Hx of CABG 06/04/20, C, quadruple; f/u tejas hadley Hx of lithotripsy Hx of repair of right rotator cuff Family History Father Myocardial infarction Stroke Mother Colorectal cancer Stroke Family/Other Prostate cancer Self Diabetes Daughter PONV (postoperative nausea and vomiting) Aunt Diabetes Brother Diabetes Denies family history of Ovarian cancer Breast cancer Social History Smoking Status: Former smoker Tobacco Type: Cigarettes Age Started Using Tobacco: 17; Age Quit Using Tobacco: 46; Smoking End Date: 04/11/86; Second Hand Exposure: Yes (hx); Do You Dip or Chew Tobacco: No (hx quit in 1986; advised); Tobacco Cessation Education Requested by Patient: No Hx Alcohol Use: Yes Alcohol type: beer Hx Substance Use: No Preferred Language: Sami Communication Ability: Effective Communication Ability Comment: very hard of hearing Visual Impairment: No Limitations Hub Associate Required: No Beliefs That Will Affect Care: None marital status: Current Living Situation: Spouse current occupational status: retired How many Children do You have: 3 Other Information That Helps Us Care for You: No Feels Safe at Home: Yes Safety Concerns: Feels Safe At This Time Childhood Exposure to Second-Hand Smoke: Yes Diet: regular caffeine: No Dental Care, Regularly: No Physical Activity Frequency: Daily Seatbelt Use: always Sunscreen Use: No Assistive Devices: Glasses and Hearing Aid - Bilateral Assistive Devices Comment: reading glasses prn
[2023-09-07] MEDS ORDERED: ROCURONIUM BROMIDE 10 MG/ML 5 ML VIAL IV ONE (08:19)
[2023-09-07] MEDS ORDERED: ONDANSETRON INJ 2 MG/ML 2 ML VIAL ONE (08:19)
[2023-09-07] MEDS ORDERED: DEXAMETHASONE SOD INJ 4 MG/ML VIAL ONE (08:19)
[2023-09-07] MEDS ORDERED: fentaNYL citrate PF 100 MCG/2 ML VIAL ONE (08:19)
[2023-09-07] MEDS ORDERED: PROPOFOL IV EMULSION 10 MG/ML 20 ML VIAL IV ONE (08:19)
[2023-09-07] MEDS ORDERED: MIDAZOLAM HCL 1 MG/ML 2ML VIAL ONE (08:19)
[2023-09-07] MEDS ORDERED: GLYCOPYRROLATE 0.2 MG/ML VIAL ONE (08:19)
[2023-09-07] MEDS ORDERED: LIDOCAINE 2% 2 ML VIAL/AMP(20MG/ML) INFIL ONE (08:19)
[2023-09-07] MEDS ORDERED: SUGAMMADEX SODIUM 200 MG/2 ML VIAL IV ONE (08:20)
[2023-09-07] MEDS ORDERED: PHENYLEPHRINE HCL 25 MG/250 ML NSS IV ONE (08:29)
[2023-09-07] MEDS ORDERED: HEPARIN SOD (PORCINE) 1000 UNIT/ML ONE (08:30)
[2023-09-07] MEDS ORDERED: NITROGLYCERIN/D5W 100 MCG/ML BTL ONE (08:33)
[2023-09-07] MEDS: LACTATED RINGER'S 1,000 ML BAG IV SCH (08:55)
[2023-09-07] MEDS ORDERED: KETOROLAC 30 MG/ML VIAL IV PRN (09:08)
[2023-09-07] MEDS ORDERED: PHENYLEPHRINE 100MCG/ML 5ML SYR IV PRN (09:08)
[2023-09-07] MEDS ORDERED: ONDANSETRON INJ 2 MG/ML 2 ML VIAL IV PRN ×2 (09:08→12:36)
[2023-09-07] MEDS ORDERED: ePHEDrine sulfate 50 MG/ML AMP IV PRN (09:08)
[2023-09-07] MEDS ORDERED: ATROPINE SULFATE 0.1 MG/ML 10ML SYR IV PRN (09:08)
[2023-09-07] MEDS ORDERED: fentaNYL citrate PF 100 MCG/2 ML VIAL IV PRN (09:08)
[2023-09-07] MEDS ORDERED: DROPERIDOL 5 MG/2 ML VIAL IV PRN (09:08)
--- NOTE | 2023-09-07 09:14 | History & Physical Bridge Note ---
Date of Service September 07, 2023 History & Physical Bridge Note I have examined the patient, reviewed the History & Physical and in the interval since the performance of the History & Physical I have noted the following changes of clinical significance: no changes noted
[2023-09-07] MEDS: CEFAZOLIN 2,000 MG/15 ML SYR IV SCH (09:37)
[2023-09-07] MEDS ORDERED: PROTAMINE SULFATE 10 MG/ML 5 ML VIAL IV ONE (10:24)
[2023-09-07] MEDS ORDERED: ePHEDrine sulfate 50 MG/ML AMP ONE (10:27)
[2023-09-07] MEDS: ceFAZolin 330 MG/ML 1 GM VIAL ONE (10:30)
[2023-09-07] MEDS: BUPIVACAINE/EPINEPHRINE 0.5% MPF 1:200,000 30 ML VIAL ONE (11:02)
[2023-09-07] MEDS: THROMBIN FOR SOLN 20000 UNIT KIT ONE (11:06)
[2023-09-07] MEDS: GELATIN SPONGE 12-7MM ONE (11:06)
--- NOTE | 2023-09-07 11:09 | Procedure Note ---
Post Operative Report Pre & Post Diagnosis Operation Date: 09/07/23 09:50 Pre-Op Diagnosis: Left internal carotid artery stenosis Post-Op Diagnosis: Left internal carotid artery stenosis I identified the patient and participated in the time-out.: Yes Procedure Operation Date: 09/07/23 09:50 Actual Procedures p Left Transcarotid Artery Revascularization, Ultrasound of Right [place] Femoral Vein(Left) - Robson Kaur MD Surgeon Robson Kaur MD Corporation Lawyer Greg,PAC Estimated Blood Loss 10 Findings Consistent with Post-Op Diagnosis Specimens none Anesthesia Type General Complications none Disposition Accompanied Patient To Recovery: No Disposition: Recovery Room Indications This is an 83-year-old gentleman who was found to have a severe stenosis of his left internal carotid artery. Endarterectomy was recommended. He elected to go ahead with a TCAR of his left carotid. I have discussed the risks options and benefits of the procedure with the patient. The patient understands the risks options and benefits and agrees to the procedure. Description of Procedure The patient was taken to the operating room and placed in supine position. After general anesthesia was accomplished the groins and left side of the neck and chest were prepped and draped in a sterile manner. Timeout was performed and the patient was identified. A transverse incision was made just above the clavicle between the heads of the sternocleidomastoid. This is carried down to where the common carotid artery was identified. It was isolated. It was slung with umbilical tape. Next the U stitch was placed in the common carotid artery with a 5-0 Prolene suture. Patient was given 8000 heparin at that time. Ultrasound was then used to localize the right common femoral vein. The vein was patent and compressed easily. Under ultrasound guidance the right common femoral vein was punctured and the venous sheath was inserted. This was aspirat ed and flushed with heparinized saline. ACT at that time was 281. Using micropuncture technique the common carotid artery was punctured. The micro sheath was inserted to 3 cm. Injection was then done showing the bifurcation. There was a significant lesion seen at the origin of the internal carotid artery on the left side. We then inserted the J-wire and left it short of the lesion. The micro sheath was removed and the TCAR sheath was inserted. Once it was in place and held against the artery it was sutured to the chest wall and the incision edge. We then flushed the tubing appropriately. The venous return to was clamped onto the TCAR sheath. It was flushed through and then attached to the venous inflow sheath in the left groin. Sheath was checked for flow. The saline cleared nicely. The common carotid artery was then clamped. Flow reversal was instituted. We inserted a 5.5 x 25 balloon backloaded on the wire. The wire was passed through the lesion into the petrous portion of the internal carotid. The 5.5 balloon was then advanced to the lesion. Lesion was then predilated with a 5.5mm balloon. Balloon was removed. We then inserted the 9-7x 40 stent. This was deployed across the lesion without difficulty. The catheter was removed. The carotid was allowed to go 2 minutes with flow reversal. Completion angiogram was done at that time which showed a widely p atent carotid stent. At that point the common carotid artery was unclamped. The venous return tubing was clamped and removed from the TCAR sheath. The blood was allowed to flow back into the venous system. Once this was completed the sheath was pulled from the groin and pressure was applied. The TCAR sheath was then removed and the 5-0 Prolene suture securely tied. Hemostasis was noted of the puncture site. Wound was irrigated with Ancef solution. Adequate hemostasis was obtained of the wound. Once this was noted the wound was closed in usual fashion using a 3-0 Vicryl suture for the subcutaneous layer and a 4-0 subcuticular Vicryl suture for the skin edges. Dermabond was used for dressing. The patient left the operation room in satisfactory condition and tolerated the procedure well. All needle and sponge counts were correct at the end of the procedure. Radha Coleman Pac assisted due to lack of resident availability and was necessary for positioning, draping, retraction, wound closure deep layers, subcutaneous tissue, and skin closure and was necessary for assisting with the case. I attest to the content of the Intraoperative Record and any orders documented therein. Any exceptions are noted below.
[2023-09-07] MEDS ORDERED: PHARMACY GLYCEMIC MGMT CONSULT PRN (12:36)
[2023-09-07] MEDS ORDERED: STAT IV Infusion **Titration per Protocol STA (12:36)
[2023-09-07] MEDS ORDERED: PHENYLEPHRINE/NSS 25 MG/250 ML BAG IV PRN (12:46)
[2023-09-07] MEDS ORDERED: GLUCAGON FOR INJ 1 MG VIAL IM PRN (13:00)
[2023-09-07] MEDS ORDERED: CARBOHYDRATES FOR HYPOGLYCEMIA PO PRN (13:00)
[2023-09-07] MEDS ORDERED: GLUCOSE 10 TAB/TUBE PO PRN (13:00)
[2023-09-07] MEDS ORDERED: DEXTROSE 50% 50 ML SYRINGE IV PRN (13:00)
[2023-09-07] MEDS ORDERED: GLUCOSE 40% GEL 15 GM TUBE PO PRN (13:00)
--- NOTE | 2023-09-07 13:07 | Pharmacy Report ---
Pharmacy Glycemic Short Note 2 - Date of Service September 07, 2023 - Glycemic Short BSG Results (Last 24 hours): 09/07/23 09/07/23 08:03 11:23 POC Glucose 132 H 146 H OUTPATIENT ANTIDIABETIC REGIMEN: * Metformin 1000 mg qm, 500 mg qPM * A1c 6.5% 08/13/23 ASSESSMENT: * Patient admitted POD #0 left TCAR. BSGs pre/post surgery 132-146 mg/dL. * Patient well controlled on metformin at home, will hold for today and start conservative basal/bolus between weight based stress of 1/2 PLAN FOR INPATIENT GLYCEMIC CONTROL: * Hold outpatient oral diabetes medications * Basal insulin * Lantus 7 units SQ x1 * Bolus insulin * NovoLog per scale ACHS or Q6hrs while NPO * Goal Range: Low 110 mg/dL - High 140 mg/dL * Correction Factor: 40 mg/dL/unit * Nutritional / Prandial insulin per carb ratio of 1 unit per 15 grams CHO consumed
[2023-09-07] MEDS: INSULIN ASPART PER UNIT CHARGE SC SCH (13:20)
[2023-09-07] MEDS: LANTUS PER UNIT CHARGE SC ONE (13:21)
[2023-09-07] MEDS: LACTATED RINGER'S 1,000 ML IV SCH (13:21)
--- OUTSIDE RECORDS SUMMARY | 2023-09-07 13:52 | External Medical Summary | Continuity of Care Document ---
Author Name Unknown Organization [facility] [address] [place], [place] [id number] Care Team Providers Care Pediatric Physician Assistant Name Role Phone Surjit Mckeonace Primary Care Physician [phone] [id number] Date(s): 08/24/23 - 08/24/23 [facility] [address] [facility] [address] [facility] [address] [place], [place] [phone] Encounter Diagnosis Occlusion and stenosis of bilateral carotid arteries(Final) - Discharge Disposition: Home or Self Care Attending Physician: MD Kaur Eugene J Referring Physician: MD Kaur Eugene J Allergies, Adverse Reactions, Alerts Substance Criticality Severity Reaction Reaction Severity Status codeine unknown Active erythromycin unknown Active meprobamate Propoxyphene hydrochloride itching Active propoxyphene itching Active Ranitidine Hydrochloride vomiting Active Medications aspirin 81 mg oral tablet, chewable Start: 06/10/20 1:18:00 PM EDT, 1 tab, PO, Daily Start Date: 06/10/20 Status: Ordered aspirin 81 mg oral tablet, chewable Start: 08/12/23 9:47:00 AM EDT, 1 tab, PO, Daily, Disp# 30 tab, Refills: 11, [id number] Start Date: 08/12/23 Status: Ordered atorvastatin 10 mg oral tablet Start: 05/29/20 8:02:00 PM EDT, 1 tab, PO, Daily Start Date: 05/29/20 Status: Ordered cholecalciferol Start: 05/29/20 8:01:00 PM EDT, 25 mcg =, PO, Daily Start Date: 05/29/20 Stop Date: 06/28/20 Status: Ordered Eliquis 5 mg oral tablet Start: 06/17/20 10:22:00 AM EDT, 1 tab, PO, bid Start Date: 06/17/20 Status: Ordered esomeprazole 20 mg oral delayed release capsule Start: 05/29/20 8:02:00 PM EDT, 1 cap, PO, Daily Start Date: 05/29/20 Status: Ordered metFORMIN 500 mg oral tablet Start: 05/29/20 8:02:00 PM EDT, See Instructions, 2 tab PO q AM and 1 tab po q PM Start Date: 05/29/20 Status: Ordered Plavix 75 mg oral tablet Start: 08/12/23 9:47:00 AM EDT, 1 tab, PO, Daily, Disp# 30 tab, Refills: 11, [id number] Start Date: 08/12/23 Status: Ordered Synthroid 50 mcg (0.05 mg) oral tablet Start: 06/10/20 1:53:00 PM EDT, 1 tab, PO, Daily, Disp# 30 tab, Refills: 0, Pharmacy: [facility] Start Date: 06/10/20 Status: Ordered Problem List Condition Confirmation Course Effective Dates Status H ealth Status Informant Aortic insufficiency Confirmed Active Atrial fibrillation Confirmed Active Barretts esophagus Confirmed Active Carotid stenosis, bilateral Confirmed Active Carotid stenosis Confirmed Active GERD with apnea Confirmed Active Skin cancer Confirmed Active Prostate cancer Confirmed Active Transient ischemic attack Confirmed Active Diabetes mellitus, type 2 Confirmed Active Procedures Procedure Date Related Diagnosis Body Site Status Colonoscopy 1, 2 05/17/20 Complete d Ultrasound--right upper quadrant 3 07/05/18 Completed 1Pathology results: Rectum, polypectomy: -hyperplastic polyp 2Repeat in 5 years. 31) There is no acute sonographic abnormality identified in the right upper quadrant. No gallstones ae seen. 2) Hepatic steatosis. Results Laboratory List Name Date Platelet Function (P2Y12 Receptor) (PLT FUNCTION P2Y12) 08/24/23 Most recent to oldest [Reference Range]: 1 P2Y12 Platelet Function [194-418 PRU] 15 2 PRU 1 *LOW* (08/24/23 10:34 AM) 1Result Comment: PRU reference range is 194-418 (healthy adults, no drug treatment). Post Drug Results: Lower PRU levels are expected following treatment with antiplatelet drugs. Post-treatment values are usually below the stated reference range above. The post-drug PRU values reported in the [employer] P2Y12 package insert are 18-435. This broader range reflects the variability in drug response and is consistent with significant numbers of patients with decreased sensitivity to P2Y12 receptor antagonists (prasugrel or clopidogrel). Clinical studies suggest an on-treatment PRU>230 indicates less than optimal response to therapy, and PRU<208 at 12-24 hours after percutaneous intervention or during follow-up is associated with a lower risk of cardiovascular events (1). (1).Standard-vs high-dose clopidogrel based on platelet function testing after percutaneouscoronary intervention: the GRAVITAS randomized trial. José Luis et al. ALEXANDRE. 2010May 14; 305(11): 1656-4197. doi: 10.1001/alexandre.2010.290 Social History Social History Type Response Smoking Status Former Smoker, quit > 1 yr Sex Male Implantable Device List Procedure Provider Procedure Date Device Type Site Unknown Unknown 06/04/20 Unknown Unknown Device Identifier Serial Number Lot or Batch Number Manufacturing Date Expiration Date Distinct Identification Code MRI Safety Implantable Status Assigning Authority Unknown Unknown [id number] Unknown 12/30/22 Unknown Unknown Active Unkn own Patient Care team information Care Team Personnel Name: MD Heaton Tiane Position: Resident - Pathologist Member Role: Lifetime Relationship Address: Address: [address] [place] [address] [place] Name: TONIA Mead Mayeen R Position: Nurse Pract - CT Surgery Member Role: Lifetime Relationship Address: Address: [address] [place] [id number] [place] Name: TONIA Mckeon Candace Position: Referring Member Role: Primary Care Provider Address: Address: [address] [place] [address] [place] Care Team Related Persons Name: ANTOLIN DELATORRE Address: [facility] [address] [facility] [id number]
--- NOTE | 2023-09-07 14:08 | Anesthesiology Progress Note ---
Date of Service September 07, 2023 Anesthesia Post Procedure Vital Signs Vital Signs: Temp Pulse Pulse Resp BP BP BP 09/07/23 14:00 65 23 102/55 L 09/07/23 13:18 66 22 09/07/23 13:00 67 17 111/57 L 09/07/23 13:00 35.6 C L 09/07/23 12:55 09/07/23 12:48 65 12 09/07/23 12:48 09/07/23 12:45 64 21 122/60 09/07/23 12:10 62 16 112/59 L 09/07/23 12:00 36.4 C L 65 18 113/58 L 09/07/23 11:50 66 16 115/59 L 09/07/23 11:40 65 14 110/60 09/07/23 11:30 67 16 123/60 09/07/23 11:23 36.0 C L 70 12 108/42 L 09/07/23 08:41 131/71 09/07/23 08:03 36.4 C L 68 20 BP Pulse Ox O2 Del Method O2 Flow Rate 09/07/23 14:00 97 Nasal Cannula 2 09/07/23 13:18 95 Nasal Cannula 2 09/07/23 13:00 97 Nasal Cannula 2 09/07/23 13:00 09/07/23 12:55 Nasal Cannula 2 09/07/23 12:48 97 09/07/23 12:48 Nasal Cannula 09/07/23 12:45 95 09/07/23 12:10 106/42 L 95 Nasal Cannula 2 09/07/23 12:00 103/42 L 95 Nasal Cannula 2 09/07/23 11:50 102/41 L 95 Oxymask 2 09/07/23 11:40 110/43 L 97 Oxymask 4 09/07/23 11:30 118/58 L 96 Oxymask 4 09/07/23 11:23 113/63 97 Oxymask 6 09/07/23 08:41 137/77 09/07/23 08:03 173/81 H 98 Room Air Transfer of Care Handoff Completed per policy Notes Mental Status: alert / awake / arousable Patient Amnestic to Procedure: Yes Nausea / Vomiting: adequately controlled Pain: adequately controlled Airway Patency, RR, SpO2: stable & adequate BP & HR: stable & adequate Hydration State: stable & adequate Anesthetic Complications: no major complications apparent
[2023-09-07 16:39] VITALS: TEMP 97.3
[2023-09-07] MEDS: ceFAZolin 2000MG 2,000 MG/15 ML SYR IV SCH (17:05)
--- NOTE | 2023-09-07 18:19 | Critical Care Consultation ---
Date of Consultation September 07, 2023 Assessment & Plan (1) Carotid stenosis: (2) MCI (mild cognitive impairment): (3) GERD (gastroesophageal reflux disease): (4) Paroxysmal atrial fibrillation: (5) Type 2 diabetes mellitus: (6) Hyperlipidemia: Plan Reason Critically Ill: 83 YOM to the ICU for postoperative monitoring following Left Transcarotid Artery Revascularization, Ultrasound of Right Commoc Femoral Vein(Left) performed by Dr. Kaur Neuro - Cognitive decline, hx of microvascular changes, carotid artery disease/ s/p LT TCAR CAM ICU: NEGATIVE - Patient is POD #0- antiplatelets and anticoagulation per surgery- verified Eliquis to start this evening, ASA, and Plavix ordered - Pain control per primary surgical service - vasoactive medications and fluid management per primary surgical service - NV/CV checks per surgery team Cardiac - Afib, HTN, HLD - PAF - Eliquis as above - Continue statin - Frequent PVCs- follow electrolytes- k ~ 4.0, Mg ~ 2.0- ICU electrolyte protocol ordered Respiratory - No acute needs - continue to wean oxygen GI - GERD, Barrot esophagus - Continue PPI currently on daily RENAL/LYTES - No acute needs - electrolytes as above - No acute needs - already voided postoperatively ENDO - DMII, Hypothyroidism - on sliding scale - hold metformin - Continue Synthroid HEME - No acute needs ID - No concern for acute infective process at this time LINES/IV ACCESS - PIV, arterial line Continue use of these lines DVT PROPHYLAXIS - SCDS, ASA, Plavix, Eliquis DISPO: ICU until hemodynamics are proven stable and hemostasis is ensured. I have personally spent 35 minutes of critical care time in the direct management of this patient. This is a life/limb threatening event. This includes time spent evaluating patient, direct bedside care, chart review, placing orders, interpretation of diagnostic studies, discussion with consultants, patient, and family members, as well as other required patient management activities. This time is exclusive of all separately billable procedures, and teaching time and separate from and in addition to any other critical care service time. Thank you for allowing us to participate in the care of this patient. Please refer to my attending physician's documentation for any further recommendations. History of Present Illness Reason for Consultation: S/P TCAR Requesting Physician: Robson Kaur MD Attending Physician: Robson Kaur MD History of Present Illness 83 YOM with medical history of: CAD, AFib (on Eliquis and post surgical atrial clip), HTN, DVT, HLD, DMII, Bilateral internal carotid arterial disease, GED, yimi esophagus, Hypothyroidism. While undergoing cognitive impairment workup, he was noted to have chronic subacute vascular disease on his MRI and his CTA of head/neck had 90% stenosis of his LICA. Patient is POD # 0 from Left Trans carotid Artery Revascularization, Ultrasound of Right Common Femoral Vein(Left)- performed by Dr. Kaur. Patient is to the ICU currently awake, on 2LNC has already tolerated food and water intake. He is currently not on any vasopressor agents. He is having frequent ventricular ectopy on telemetry and has an electrolyte panel pending. CODE: FULL Allergies Allergy/AdvReac Type Severity Reaction Status Date / Time meprobamate Allergy Mild ITCHING Verified 09/07/23 08:22 propoxyphene Allergy Mild ITCHING Verified 09/07/23 08:22 codeine Allergy Unknown hallucinati Verified 09/07/23 08:22 ons erythromycin base Allergy Unknown PT IS NOT Verified 09/07/23 08:22 SURE - SEE NOTES BELOW salicylates Allergy Unknown NOT SURE Verified 09/07/23 08:22 Xanthines Allergy Unknown NOT SURE Verified 09/07/23 08:22 ranitidine [From Zantac] AdvReac Mild vomiting ? Verified 09/07/23 08:22 /NOT SURE Home Medications Medication Instructions Recorded Confirmed Type acetaminophen 500 mg tablet 500 mg PO Q8H PRN Pain 06/12/20 09/07/23 History (Tylenol Extra Strength) atorvastatin 10 mg tablet 10 mg PO QPM #90 tabs 10/08/22 09/07/23 Rx levothyroxine 50 mcg tablet 50 mcg PO QAM #90 tabs 10/08/22 09/07/23 Rx blood sugar diagnostic (OneTouch #100 ea 01/05/23 08/03/23 Rx Ultra Test strips) blood-glucose meter (OneTouch #1 ea 01/05/23 08/03/23 Rx Ultra2 Meter) esomeprazole magnesium 20 mg 20 mg PO QAM #90 caps 05/10/23 09/07/23 Rx capsule,delayed release blood-glucose meter,continuous #1 ea 06/18/23 08/03/23 Rx (FreeStyle Jada 3 Katy) blood-glucose sensor (FreeStyle #2 ea 08/09/23 Rx Jada 3 Sensor device) aspirin 81 mg tablet,delayed 81 mg PO QAM 08/13/23 09/07/23 History release cholecalciferol (vitamin D3) 25 25 mcg PO QAM 08/13/23 09/07/23 History mcg (1,000 unit) tablet (Vitamin D3) metformin 500 mg tablet 500 - 1,000 mg PO UD 08/13/23 09/07/23 History clopidogrel 75 mg tablet (Plavix) 75 mg PO DAILY 08/16/23 09/07/23 History apixaban 5 mg tablet (Eliquis) 5 mg PO BID #180 tabs 08/30/23 09/07/23 Rx Patient History Medical History Cerebral vascular disease 07/01/23 brain MRI showing findings related to "underlying chronic microvascular ischemic disease. A subacute lacunar infarct could appear similarly. " History of DVT (deep vein thrombosis) Left lower extremity DVTpost CABG 2020 per cardio records Mild cognitive impairment recently dx 07/2023, with tejas [place] Coronary artery disease s/p 4 vessel CABG 2020 Hypothyroidism HTN (hypertension) No meds needed Hx of gout No recent issues History of prostate cancer dx 2005, s/p prostatectomy - no chemo or XRT Dementia recently dx per dtr Carotid stenosis Per neck CTA 07/01/23= left ICA 90% stenosis; < 50% stenosis of right ICA Transient ischemic attack (TIA) Seen by Dr. 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 Hearing deficit BL THURMAN Barretts esophagus hx- follows routinely for EGDs GERD (gastroesophageal reflux disease) well controlled and stable History of nephrolithiasis Currently- follows with urology- currently asymptomatic Atrial fibrillation dx several years ago; currently on eliquis; te[place] Former smoker Hypercholesterolemia Surgical History Hx of CABG 06/04/20, [facility], quadruple; [place] History of cardiac cath 2020/blockages...quadruple bypass sx.; te[place] History of cystoscopy WITH STENT History of esophagogastroduodenoscopy (EGD) History of radical retropubic prostatectomy 2006, w/bilateral Pelv Lymphadenectomy Hx of lithotripsy Hx of repair of right rotator cuff History of colonoscopy Fiberoptic History of cataract surgery RIGHT AND LEFT Family History Father Myocardial infarction Stroke Mother Colorectal cancer Stroke Family/Other Prostate cancer Self Diabetes Daughter PONV (postoperative nausea and vomiting) Aunt Diabetes Brother Diabetes Denies family history of Ovarian cancer Breast cancer Social History Smoking Status: Former smoker Tobacco Type: Cigarettes Age Started Using Tobacco: 17; Age Quit Using Tobacco: 46; Smoking End Date: 04/11/86; Second Hand Exposure: Yes (hx); Do You Dip or Chew Tobacco: No (hx quit in 1986; advised); Tobacco Cessation Education Requested by Patient: No Hx Alcohol Use: Yes Alcohol type: beer Hx Substance Use: No Preferred Language: Slovenian Communication Ability: Effective Communication Ability Comment: very hard of hearing Visual Impairment: No Limitations Wage Adjuster Required: No Beliefs That Will Affect Care: None marital status: Current Living Situation: Spouse current occupational status: retired How many Children do You have: 3 Other Information That Helps Us Care for You: No Feels Safe at Home: Yes Safety Concerns: Feels Safe At This Time Childhood Exposure to Second-Hand Smoke: Yes Diet: regular caffeine: No Dental Care, Regularly: No Physical Activity Frequency: Daily Seatbelt Use: always Sunscreen Use: No Assistive Devices: Glasses and Hearing Aid - Bilateral Assistive Devices Comment: reading glasses prn Review of Systems Review of Systems: REVIEW OF SYSTEMS: Constitutional: No fever, sweats or chills Eyes: No diplopia, no worsening or blurred vision ENT: (+) difficultly hearing, no trouble swallowing Respiratory: No cough, sputum, dyspnea at rest or on exertion Cardiovascular: No chest pain, tightness or palpitations Abdomen: No pain, nausea, vomiting, diarrhea or constipation Musculoskeletal: No joint pain, calf pain, swelling Neurologic: No weakness, numbness/tingling, or balance problems Psychiatric: No anxiety or depression Skin: No rash or itch Physical Exam Physical Exam: PHYSICAL EXAM: General: awake, alert, no apparent distress Head: Normocephalic, atraumatic ENT: PERRL, EOMI, no pharyngeal exudate, mucous membranes moist Neuro: AAO x 3, speech clear and appropriate, strength intact bilaterally 5/5, sensation intact and equal all extremities and dermatomes, no pronator drift Chest: equal rise and fall of the chest, no accessory muscle use, no heaves or thrills, Clear to auscultation, on room air, Cardiac: Regular rate and rhythm, telemetry reviewed- NSR with frequent unifocal PVS, skin warm dry, cap refill <3 seconds, peripheral pulses +2 no JVD, no murmur, no edema, incision to left neck with dermabond, noted brusing no hematoma, right groin intact without hematoma, peripheral pulses marked and palpable. GI: NABS x 4 quadrants, soft, nontender to palpation, no rebound, guarding or tenderness : Spontaneously voiding, no pain, no CVA tenderness, Psych: Normal mood and affect Skin: no rash or erythema Results & Data Results & Data Vital Signs (Past 12 Hours) Vital Signs Temp Pulse Pulse Resp BP BP BP 09/07/23 17:06 70 16 106/54 L 09/07/23 16:00 61 19 124/63 09/07/23 16:00 67 09/07/23 16:00 36.3 C L 09/07/23 15:03 70 16 121/65 09/07/23 15:00 36.4 C L 09/07/23 14:00 65 23 102/55 L 09/07/23 13:18 66 22 09/07/23 13:00 67 17 111/57 L 09/07/23 13:00 35.6 C L 09/07/23 12:55 09/07/23 12:48 65 12 09/07/23 12:48 09/07/23 12:45 64 21 122/60 09/07/23 12:10 62 16 112/59 L 09/07/23 12:00 36.4 C L 65 18 113/58 L 09/07/23 11:50 66 16 115/59 L 09/07/23 11:40 65 14 110/60 09/07/23 11:30 67 16 123/60 09/07/23 11:23 36.0 C L 70 12 108/42 L 09/07/23 08:41 131/71 09/07/23 08:03 36.4 C L 68 20 BP Pulse Ox O2 Del Method O2 Flow Rate 09/07/23 17:06 97 Nasal Cannula 2 09/07/23 16:00 97 Nasal Cannula 2 09/07/23 16:00 09/07/23 16:00 09/07/23 15:03 95 Nasal Cannula 2 09/07/23 15:00 09/07/23 14:00 97 Nasal Cannula 2 09/07/23 13:18 95 Nasal Cannula 2 09/07/23 13:00 97 Nasal Cannula 2 09/07/23 13:00 09/07/23 12:55 Nasal Cannula 2 09/07/23 12:48 97 09/07/23 12:48 Nasal Cannula 09/07/23 12:45 95 09/07/23 12:10 106/42 L 95 Nasal Cannula 2 09/07/23 12:00 103/42 L 95 Nasal Cannula 2 09/07/23 11:50 102/41 L 95 Oxymask 2 09/07/23 11:40 110/43 L 97 Oxymask 4 09/07/23 11:30 118/58 L 96 Oxymask 4 09/07/23 11:23 113/63 97 Oxymask 6 09/07/23 08:41 137/77 09/07/23 08:03 173/81 H 98 Room Air Laboratory Results Abnormal lab results 09/07/23 09/07/23 09/07/23 Range/Units 08:03 10:28 10:53 Activ Coag Time Kaolin 281 H 147 H (94-140) SECONDS POC Glucose 132 H (70-99) mg/dl 09/07/23 09/07/23 Range/Units 11:23 16:15 Activ Coag Time Kaolin (94-140) SECONDS POC Glucose 146 H 190 H (70-99) mg/dl Coding Level of Care Code 73700 CRITICAL CARE 1ST 30-74M Diagnoses Carotid stenosis I65.29 MCI (mild cognitive impairment) G31.84 GERD (gastroesophageal reflux disease) K21.9 Paroxysmal atrial fibrillation I48.0 Type 2 diabetes mellitus without complication, without long-term current use of insulin E11.9 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
[2023-09-07 18:30] LABS: BUN Creatinine Ratio 23.8 (10-20); Calcium 9.1 mg/dl (8.6-10.3); Creatinine Clr Calc Pharmacy 48.2 ml/min; Est GFR (African American) 63.6 ml/min; Est GFR (Non-African American) 54.9 ml/min; Potassium 4.2 mmol/L (3.5-5.1)
[2023-09-07 19:00] LABS: Magnesium 1.7 mg/dl (1.7-2.4); Phosphorus 3.4 mg/dl (2.5-4.9)
[2023-09-07] MEDS: oxyCODONE/ACETAMINOPHEN 5mg/325mg TAB PO PRN (19:20)
[2023-09-07] MEDS: MAGNESIUM SULFATE / D5W 1 GM/100 ML BAG IV SCH (19:22)
[2023-09-07] MEDS: APIXABAN 5 MG TABLET PO SCH (20:55)
[2023-09-07] MEDS: ATORVASTATIN 10 MG TAB PO SCH (20:56)
[2023-09-08 05:10] LABS: Calcium 9.4 mg/dl (8.6-10.3); Creatinine Clr Calc Pharmacy 56.5 ml/min; Est GFR (African American) 77.1 ml/min; Est GFR (Non-African American) 66.6 ml/min; Magnesium 2.2 mg/dl (1.7-2.4); Phosphorus 3.8 mg/dl (2.5-4.9); Potassium 4.6 mmol/L (3.5-5.1)
[2023-09-08] MEDS: ICU ELECTROLYTE REPLACEMENT PROTOCOL SCH (05:49)
[2023-09-08] MEDS: LEVOTHYROXINE SODIUM 50 MCG TABLET PO SCH (06:03)
[2023-09-08] MEDS: CLOPIDOGREL BISULFATE 75 MG TAB PO SCH (08:09)
[2023-09-08] MEDS: CHOLECALCIFEROL 25 MCG (1000 UNITS) TAB PO SCH (08:09)
[2023-09-08] MEDS: ASPIRIN 81 MG ECTAB PO SCH (08:09)
[2023-09-08] MEDS: PANTOprazole 40 MG TAB PO SCH (08:09)
[2023-09-08 08:58] VITALS: RESP 17; O2SAT 91
--- NOTE | 2023-09-08 12:38 | Surgery Progress Note ---
Date of Service September 08, 2023 Assessment & Plan (1) Carotid stenosis: Plan: Patient POD 1 from a left tcar. He is doing well with no neuro deficits. Will D/C home today Admission and Anticipated Discharge Date Admission Date: September 07, 2023 Subjective Patient with no complaints Physical Exam Constitutional: WD/WN, vitals as above Neck: trachea midline Respiratory: normal respiratory effort; no respiratory distress Cardiovascular: Rate/Rhythm: regular rate and regular rhythm Skin: + incision (dry and clean) Neurologic: CN's II-XI intact bilaterally and moves all extremities Results & Data Vital Signs (Past 12 Hours) Vital Signs Pulse Resp BP Pulse Ox O2 Del Method 09/08/23 08:05 98/50 L 09/08/23 08:00 56 L 09/08/23 08:00 55 L 17 98/50 L 91 Room Air 09/08/23 08:00 61 09/08/23 07:03 58 L 17 118/68 96 09/08/23 06:15 65 22 94 09/08/23 06:09 61 19 97 09/08/23 05:00 126/60 09/08/23 05:00 126/60 09/08/23 05:00 126/60 09/08/23 05:00 55 L 14 91 09/08/23 04:00 57 L 14 90 09/08/23 04:00 112/55 L 09/08/23 03:03 60 16 94 09/08/23 03:00 116/61 09/08/23 02:57 61 17 93 09/08/23 02:09 59 L 17 94 09/08/23 02:00 138/73 09/08/23 01:51 60 17 95 09/08/23 01:00 58 L 16 95 09/08/23 01:00 119/61 09/08/23 01:00 119/61 09/08/23 01:00 119/61
[2023-09-08 12:44] VITALS: BP 106/42; PULSE 62
--- NOTE | 2023-09-08 13:53 | Discharge Summary ---
"Date of Service September 08, 2023 Admission HPI Per Admitting Provider Reason for Consultation Left internal carotid artery stenosis History of Present Illness I had pleasure seeing Cesar today for evaluation of his carotid disease. He knows he is 83-year-old gentleman who had a decrease in his cognitive ability and behavioral changes in March of this year. In his workup following this he was found to have left parieto-occipital area changes on his MRI consistent with chronic subacute vascular disease and likely ischemic stroke. His CT angiogram done this month showed a 90% stenosis of his left internal carotid artery and moderate plaque of his right carotid. He is asymptomatic at this time from carotid disease. He is right-handed. He is a former smoker. Does have atrial fibrillation on Eliquis. He also has had a coronary artery bypass grafting in the past. He is diabetic and hypertensive. He also has a history of prostate cancer and a retropubic prostatectomy. Review of Systems 10 systems reviewed. Positive findings included occasional chest pain heart failure irregular heartbeat. He also complains of occasional cough with shortness of breath. Heartburn diarrhea. He does have a history of kidney stones and incontinence secondary to his prostate surgery. Physical Exam Vitals & Measurements HR: 53 (Monitored) BP: 124/60 SpO2: 98% Input and Output - Last 24 hours (Last 8 hours) No I/O Data Found: On physical exam he is awake alert and oriented to 3. His blood pressure is 130/64 in the left 124/60 on the right. His radials are present +2 bilaterally. I do hear soft carotid bruits on both sides. His lungs are clear. Heart had a regular rate and rhythm. Abdominal exam is benign. No abnormal dilatation was appreciated. Femorals and pedal pulses are +2 bilaterally. Neurologic exams intact motor and sensory function. Diagnostic Results CT angiogram shows a 90% narrowing of the left internal carotid artery and a 50% narrowing of his right internal carotid Assessment/Plan 1. Carotid stenosis, bilateral Due to moderate narrowing of the carotid recommended intervention of the left carotid. We went over the risks options benefits of endarterectomy versus TCAR. He is elected to go ahead with the TCAR procedure of the left carotid. Risks options and benefits of this procedure were discussed with the patient and documented in the consent form. He is agreeable to go ahead with this procedure and understood the risks involved. Will keep informed as to his results. Thank you very much for letting us participate in the care of this patient. Sincerely, Louisa Kaur MD Attestation I have personally spent ___35__ minutes performing [id number] and [id number] activities on this date of service. Activities Include: __x review of the medical record __x obtaining a history _x_ physical exam/evaluation __ review labs __x review radiology reports _x_ counseling/educating patient/family/caregiver __ discussion/referral to other healthcare professional _x_ documenting care in the medical record _x_ independent interpretation of results [facility] at [facility] __ communication of results to patient/family/caregiver __ coordination of care Problem List/Past Medical History Ongoing Aortic insufficiency Atrial fibrillation Barretts esophagus Carotid stenosis Carotid stenosis, bilateral Diabetes mellitus, type 2 GERD with apnea Prostate cancer Skin cancer Transient ischemic attack Procedure/Surgical History Colonoscopy| Service Date: 05/17/2020 Ultrasound--right upper quadrant| Service Date: 07/05/2018 Medications Home apixaban(Eliquis 5 mg oral tablet), 5 mg= 1 tab, PO, bid aspirin(aspirin 81 mg oral tablet, chewable), 81 mg= 1 tab, PO, Daily aspirin(aspirin 81 mg oral tablet, chewable), 1 tab, PO, Daily, 11 refills atorvastatin(atorvastatin 10 mg oral tablet), 10 mg= 1 tab, PO, Daily cholecalciferol, 25 mcg, PO, Daily clopidogrel(Plavix 75 mg oral tablet), 1 tab, PO, Daily, 11 refills esomeprazole(esomeprazole 20 mg oral delayed release capsule), 20 mg= 1 cap, PO, Daily fluorouracil topical(Efudex 5% topical cream), 1 appl, topical, bid levothyroxine(Synthroid 50 mcg (0.05 mg) oral tablet), 50 mcg= 1 tab, PO, Daily metFORMIN(metFORMIN 500 mg oral tablet), See Instructions Allergies Ranitidine Hydrochloride vomiting codeine unknown erythromycin unknown meprobamate Propoxyphene hydrochloride, itching propoxyphene itching Social History Smoking Status Former Smoker, quit > 1 yr Signature Line Electronic Signature on File Robson Kaur MD Author Signature Dt/Tm: 08/12/2023 10:02 AM 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 His blood pressure is 130/64 in the left 124/60 on the right. His radials are present +2 bilaterally. I do hear soft carotid bruits on both sides. His lungs are clear. Heart had a regular rate and rhythm. Abdominal exam is benign. No abnormal dilatation was appreciated. Femorals and pedal pulses are +2 bilaterally. Neurologic exams intact motor and sensory function. Principal Diagnosis 1. s/p L TCAR 2. L ICA stenosis Discharge Exam Constitutional WD/WN, vitals as above Neck trachea midline Respiratory normal respiratory effort; no respiratory distress Cardiovascular Rate/Rhythm: regular rate and regular rhythm Skin + incision (dry and clean) Neurologic CN's II-XI intact bilaterally and moves all extremities Discharge Data Allergies Allergy/AdvReac Type Severity Reaction Status Date / Time meprobamate Allergy Mild ITCHING Verified 09/07/23 08:22 propoxyphene Allergy Mild ITCHING Verified 09/07/23 08:22 codeine Allergy Unknown hallucinati Verified 09/07/23 08:22 ons erythromycin base Allergy Unknown PT IS NOT Verified 09/07/23 08:22 SURE - SEE NOTES BELOW salicylates Allergy Unknown NOT SURE Verified 09/07/23 08:22 Xanthines Allergy Unknown NOT SURE Verified 09/07/23 08:22 ranitidine [From Zantac] AdvReac Mild vomiting ? Verified 09/07/23 08:22 /NOT SURE Consultations 09/07/23 12:36 Consult [employer] Routine Procedures Performed Operation Date: 09/07/23 09:50 Actual Procedures p Left Transcarotid Artery Revascularization, Ultrasound of Right [place] Femoral Vein(Left) - Robson Kaur MD Ordered Studies 09/07/23 07:07 EV angio carotid cerv LT Routine US EV guide vascular access Routine Hospital Course (1) Carotid stenosis: Patient POD 1 from a left tcar. He is doing well with no neuro deficits. Will D/C home today Total Time Total Time Spent Total Time Spent (In Minutes): 0 Discharge Plan Discharge Items Patient Disposition: Home - Self-Care Reason For Visit: Left Carotid Artery Stenosis Discharge Diagnosis: Left internal carotid artery stenosis Activity: Per Instructions section Non-emergency contact: Surgeon Call non-emergency contact if: your temperature is above 101.5, your wound has increased redness, your wound has increased drainage and your wound pain has increased Follow-up/Referrals: Patt Mckeon CRNP [Primary Care Provider] - 09/16/23 10:30 am (Hospital follow up scheduled September 15 at 10:30 with Patt Mckeon.) Diet: Carb Consistent or DM2 and Heart Healthy Addtl Attending Provider Instructions: SPECIAL CARE INSTRUCTIONS: Medications: * Continue to take Aspirin, plavix and statin as directed. Incision Care: * You may shower, but do not rub incision. You may let the warm soapy water run over it. Be sure to dry the incision well after bathing. * Do not shave directly over the incision until it is healed. * DO NOT IMMERSE THE INCISION IN A TUB/POOL/etc. UNTIL HEALED. Restrictions: * Do not drive for at least one week or if you are still taking any narcotic pain medication. * Do not lift anything heavier than a gallon of milk for one week after going home. Possible Complications: * Numbness - It is normal to have some numbness around the incision. Numbness can extend beyond the incision to areas of the neck, ear and face. The numbness is due to bruising of nerves during the surgery and will gradually improve over a period of months. * Hoarseness/Difficulty Speaking and Swallowing - The bruising of nerves in the neck can also cause a hoarse voice, difficulty speaking or swallowing. This may improve over time, HOWEVER, if it continues for more than a few days please contact our office ([phone]). * Excessive Swelling - There will be some swelling immediately after surgery which usually resolves within one week. If you notice that the swelling is getting worse, notify your surgeon ([phone]). * Drainage/Bleeding - If there is any drainage or bleeding, it should be a very small amount (less than a teaspoon per day). If you have excessive bleeding or drainage from the incision, call your surgeon ([phone]) right away. ACTIVATION OF EMERGENCY MEDICAL SYSTEM: Call 911, immediately, if you experience any of the following: Warning Signs and Symptoms of Stroke: * Sudden numbness or weakness of the face, arm or leg, especially on one side of the body * Sudden confusion, trouble speaking or understanding * Sudden trouble seeing in one or both eyes * Sudden trouble walking, dizziness, loss of balance or coordination * Sudden severe headache with no cause Do not delay calling 911 if you experience any warning signs or symptoms of a stroke. Delay in seeking medical attention may affect what treatments can be given to you. Risk Factors for Stroke: You can reduce your chances of stroke by working with your medical provider to adopt a healthy lifestyle. Some specific ways to lower your chance of stroke are: * If you are a smoker, now is the time to stop smoking cigarettes * If you are diabetic, improve the control of your blood sugars * Avoid excessive amounts of alcohol * Control high blood pressure * Lose weight if you are overweight * Be sure to lead an active lifestyle * Eat a healthy diet low in salt, cholesterol and fat You should know about other risk factors for stroke that you are unable to control. These include: * Age 55 years or older * Male gender * Certain racial groups: , or / * Family History of Stroke, Mini stroke or Heart Attack * Sickle Cell Disease You will be receiving a call from the Vascular Surgery Nurse after you are discharged. FOLLOW UP VISIT: It is important for you to keep your follow up appointments with your medical provider. Keep any scheduled doctor appointments. Call [phone] to schedule a follow up appointment if one not already scheduled. Pending Studies at Discharge: No Stand-Alone Forms: My [employer], Smoking Cessation Medications and DC Order Prescriptions: New oxycodone-acetaminophen 5-325 mg Tablet 1 - 2 tab PO Q4H PRN (Reason: pain) Qty: 10 0RF Continued levothyroxine 50 mcg tablet 50 mcg PO QAM Qty: 90 3RF atorvastatin 10 mg tablet 10 mg PO QPM Qty: 90 3RF (DME) blood-glucose meter [OneTouch Ultra2 Meter] Misc See Rx Instructions .Route Qty: 1 0RF Rx Instructions: test 1-2 x a day (DME) OneTouch Ultra Test Strip See Rx Instructions .Route Qty: 100 3RF Rx Instructions: test once a day esomeprazole magnesium 20 mg capsule,delayed release(DR/EC) 20 mg PO QAM Qty: 90 3RF (DME) FreeStyle Jada 3 [place] Misc See Rx Instructions .Route Qty: 1 0RF Rx Instructions: test 2-3 times a day (DME) FreeStyle Jada 3 Sensor Device See Rx Instructions .Route Qty: 2 5RF Rx Instructions: test 2-3 x a day Eliquis 5 mg tablet 5 mg PO BID Qty: 180 3RF acetaminophen [Tylenol Extra Strength] 500 mg tablet 500 mg PO Q8H PRN (Reason: Pain) metformin 500 mg tablet 500 - 1,000 mg PO UD Rx Instructions: Take 2 tablets in the morning (1,000 mg) and 1 tablet ( 500 mg) at night. cholecalciferol (vitamin D3) [Vitamin D3] 25 mcg (1,000 unit) Tablet 25 mcg PO QAM aspirin 81 mg Tablet,Delayed Release (Dr/Ec) 81 mg PO QAM clopidogrel [Plavix] 75 mg Tablet 75 mg PO DAILY Discharge Orders: Discharge Order (Routine); Ordered 09/08/23 Ordered By: Robson Kaur Admission Data Admit Date/Time: 09/07/23 09:14 Attending Provider: Robson Kaur Admit Provider: Robson Kaur Primary Care Provider: Patt Mckeon Other Providers: Los Marquez; Dev Villanueva; Rui Ye; Bladimir Brice; Fred Alejandra; Wilian Sams; Vladimir Rivera; Aminah Hoyt; Yola Temple; Boston Lewis; Rafa Pratt; Calista Garcia Other Interventions: Discharge Summary Assessment (RN) Last Done: 09/08/23 12:42"
== END 2023-09-08 14:05 | disposition home or self-care (01) | DRG 36 ==
LOC: ASU 07:36 → 1E 09:14
PROC: EV.TCAR (2023-09-07 09:50)
DX: E78.5 Hyperlipidemia, unspecified; Z79.01 Long term (current) use of anticoagulants; K22.70 Barrett's esophagus without dysplasia; I35.1 Nonrheumatic aortic (valve) insufficiency; Z85.46 Personal history of malignant neoplasm of prostate; I11.0 Hypertensive heart disease with heart failure; Z87.891 Personal history of nicotine dependence; Z79.82 Long term (current) use of aspirin; Z90.79 Acquired absence of other genital organ(s); I50.9 Heart failure, unspecified; Z79.890 Hormone replacement therapy; Z88.5 Allergy status to narcotic agent; E11.51 Type 2 diabetes mellitus with diabetic peripheral angiopathy without gangrene; Z79.899 Other long term (current) drug therapy; Z79.84 Long term (current) use of oral hypoglycemic drugs; E03.9 Hypothyroidism, unspecified; Z88.8 Allergy status to other drugs, medicaments and biological substances; Z79.02 Long term (current) use of antithrombotics/antiplatelets; I65.23 Occlusion and stenosis of bilateral carotid arteries; K21.9 Gastro-esophageal reflux disease without esophagitis; Z86.718 Personal history of other venous thrombosis and embolism; Z88.1 Allergy status to other antibiotic agents; Z95.1 Presence of aortocoronary bypass graft; I25.10 Atherosclerotic heart disease of native coronary artery without angina pectoris; Z86.73 Personal history of transient ischemic attack (TIA), and cerebral infarction without residual deficits; I48.0 Paroxysmal atrial fibrillation